=== PATIENT | male | born 1985 | race Caucasian/White ===

== ENCOUNTER 2022-01-04 08:21 | Day surgery (SDC) | payer OTHER ==
[2022-01-04 08:28] LABS: Absolute Lymphocytes (CBC) 1.3 K/uL (0.7-4.9); Hematocrit 29.6 % (39.6-49.0); Lymphocytes % 8.9 % (15.3-44.8); MPV 5.7 fL (7.6-11.3); RBC Red Blood Cell Count 3.71 M/uL (4.33-5.43)
[2022-01-04] MEDS ORDERED: Ringers Lactate 1,000 ML IV ONE (08:56)
[2022-01-04] MEDS ORDERED: CEFAZOLIN SODIUM 1 GM/VIAL ONE (08:56)
[2022-01-04] MEDS ORDERED: NA CHLORIDE 0.9% 50 ML ONE (08:57)
[2022-01-04] MEDS ORDERED: FENTANYL CITR 100 MCG/2 ML ONE (09:07)
[2022-01-04] MEDS ORDERED: propofoL 200 MG/20 ML VIAL IV ONE (09:07)
[2022-01-04] MEDS ORDERED: MIDAZOLAM HCL 2 MG/2 ML INJ ONE (09:07)
[2022-01-04] MEDS ORDERED: KETOROLAC 30 MG/ML INJ ONE (09:08)
[2022-01-04] MEDS ORDERED: dexAMETHasone 10 MG/ML VIAL ONE (09:08)
[2022-01-04] MEDS ORDERED: LIDOCAINE 1% MPF 30 ML VIAL ONE (09:08)
[2022-01-04] MEDS ORDERED: ONDANSETRON 4 MG/2 ML VIAL ONE (09:08)
[2022-01-04] MEDS ORDERED: NS 0.9% VIAL 0 ML ONE (09:09)
[2022-01-04] MEDS ORDERED: HEPARIN 5000 UNIT/ML 1 ML VIAL ONE (09:10)
[2022-01-04] MEDS ORDERED: LIDOCAINE 1% 20 ML MDV ONE (09:10)
[2022-01-04] MEDS ORDERED: NS 0.9% VIAL 10 ML ONE (09:11)
[2022-01-04] MEDS ORDERED: LIDOCAINE 1% 20 ML MDV IJ ONE (10:12)
[2022-01-04] MEDS ORDERED: Mastisol Adhesive Liq ONE (10:35)
--- NOTE | 2022-01-04 10:45 | P.OP ---
Date of Service: 01/04/22 Preop diagnosis: Rectal cancer Postop diagnosis: Same Procedure performed: Right IJ Port-A-Cath placement, interpretation of intraoper ative fluoroscopy Surgeon: Lawson Leal MD Urologic Nurse: Jersey CRESPO Estimated blood loss: Minimal Specimen: None Findings: Normal anatomy Anesthesia: General Complications: None Drains: None Fluids and blood products: None applicable Disposition: Recovery room Operative note: Patient brought to the OR and placed in supine position. Patient prepped and draped in usual sterile fashion. Marcaine 0.5% infiltrated locally for postop pain control. 18-gauge needle used to access the right IJ vein. Guidewire passed and position confirmed with fluoroscopy. 3 cm counterincision made on the right anterior chest. A pocket created. A tunneling device used to pass the catheter from the neck wound to the chest. Seldinger technique used to place the tip of the catheter into the SVC via fluoroscopy guidance. The catheter attached to the Port-A-Cath device. Port-A-Cath device attached to the subcutaneous tissue with 3-0 Vicryl. 3-0 chromic used to approximate subcutaneous tissue in close skin. Port-A-Cath flushed with heparin and packed with heparin with good blood flow. Sterile dressing applied. Patient awakened and taken to recovery room in good general condition. CC: Dr. Sin's office
[2022-01-04] MEDS ORDERED: HYDROCODONE/APAP 7.5/325 MG TAB PO PRN (10:47)
[2022-01-04 11:32] VITALS: BP 110/72; TEMP 96.9; O2SAT 97
--- NOTE | 2022-01-04 11:53 | RAD REPORT ---
EXAM DESCRIPTION: RAD - Fluoroscopy <1 Hour - 01/04/2022 11:47 am FINDINGS: There were 6 portable C-arm images submitted from fluoroscopic assisted placement of a rig ht-sided Port-A-Cath. Fluoro time was 0.2 minutes with a 5.59 mGy cumulative dose.
--- NOTE | 2022-01-04 11:54 | RAD REPORT ---
EXAM DESCRIPTION: RAD - Chest Single View - 01/04/2022 11:46 am CLINICAL HISTORY: Status post Port-A-Cath placement COMPARISON: August 2016 TECHNIQUE: AP portable chest image was obtained 01/04/2022 11:46 am . FINDINGS: Right-sided Port-A-Cath has been placed. Tip is in the proximal SVC. There is no pneumotho rax. Small rounded masses are scattered in the lung parenchyma. Low lung volumes accentuate all chest find ings. No pleural fluid collection. Delete select IMPRESSION: Right-sided Port-A-Cath placement with the tip in the proximal SVC. No pneumothorax.
== END 2022-01-04 12:17 | disposition home or self-care (01) ==
LOC: OR 08:21
PROVIDERS: ATTEND Surgery
PROC: 0JH60WZ Insertion of Totally Implantable Vascular Access Device into Chest Subcutaneous Tissue and Fascia, Open Approach (ICD-10-PCS; principal; 2022-01-04 09:30)
DX: C20 Malignant neoplasm of rectum (principal); Z20.822 Contact with and (suspected) exposure to COVID-19
CPT/HCPCS: 85025; 36415; 71045; 76000; 36561; U0003; J2704; J1644 ×3; J2250; J3010; J1100; J7120; J2405; J0690; C1788

== ENCOUNTER 2022-08-26 11:51 | Inpatient (IN) | payer OTHER ==
--- OUTSIDE RECORDS SUMMARY | 2022-08-26 11:58 | XMS REPORT | Continuity of Care Document ---
:1985 Author Organization [facility] t Address 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 Clinicall y the patient is stable and does not require urgent MRI of his brain given his advanced colorecta l cancer. I discussed that if he should have any new symptoms such as persisten t headaches or seizures he should contact our service and then have the MRI scheduled . Colorectal Colorectal Disease Active 2021-09 Overview : [place] cancer cancer 0-11 [facility] 00:00: g of this 00 note might be different from the original. 6 months chemo Allergies, Adverse Reactions, Alerts Allergy Allergy Status Severity Reaction(s) Onset Inactive Treating Comm ents Source Name Type Date Date Clinician Sulfa Allergy Active 2021-09 [facility]iot [facility] ics substanc 00:00: e 00 Social History Social Habit Start Date Stop Date Quantity Comments Source History of tobacco Passive smoker [facility] use Exposure to 2022-06-12 2022-06-22 Not sure [facility] SARS-CoV-2 (event) 00:00:00 06:08:00 Alcohol intake 2022-06-22 2022-06-22 Lifetime [facility] 00:00:00 00:00:00 non-drinker (finding) Tobacco Comment 2022-06-22 2022-06-22 Smoking History [facility] 00:00:00 00:00:00 Packs/day: 1 PPD. Recorded: 0 Sex Assigned At [birth year] [facility] 00:00:00 00:00:00 Smoking Status Start Date Stop Date Source Tobacco smoking consumption unknown [facility] Ex-smoker 2022-06-22 00:00:00 2022-06-22 00:00:00 [facility] Medications Ordered Filled Start Stop Current Ordering Indication Dosage Frequency Signature Comments Components Source Medication Medication Date Date Medication? Clinician (SIG) Name Name No known 2021-09 No No known [facility] medications medication He alth 16:17: s 06 Procedures Procedure Date / Time Performed Performing Clinician Sour e MRI BRAIN W WO CONTRAST 2021-07-15 15:24:25 Frank, Sigmund [facility] BRAIN W WO CONTRAST 2021-07-15 15:24:25 Frank, Sigmund [facility] Encounters Start End Encounter Admission Attending Care Care Encounter Source Date/Time Date/Time Type Type Clinicians Facility Department ID 2022-06-22 Outpatient [facility] [id number] [place] 14:54:25 [id number] [facility] 2022-06-21 Outpatient [facility] [id number] [place] 15:36:47 [id number] [facility] 2022-01-14 [facility]patient [id number] 10:00:[address] [place] [address] 2021-12-24 Outpatient SYSTEM, [facility] [id number] 11:45:50 PROVIDER Bashir moore 2022-06-22 2022-06-22 Telemedici Frank, UTP 6400 [id number] [place] 15:00:00 16:05:[address] [id number] Health [id number] 2021-07-15 2021-07-15 [facility] OP Frank, EXT MSRDP [id number] [place] 00:00:00 00:00:00 Sigmund LOCATION [id number] H ealth [id number] 2021-07-15 2021-07-15 [facility]T [facility] OP Frank, EXT MSRDP [id number] [place] 00:00:00 00:00:00 Sigmund LOCATION [id number] H ealth [id number] Results This patient has no known results.
[2022-08-26] MEDS ORDERED: MORPHINE 4 MG/ML SYR ONE ×2 (12:48→16:21)
[2022-08-26] MEDS ORDERED: NA CHLORIDE 0.9% 1,000 ML ONE (12:48)
[2022-08-26] MEDS ORDERED: ONDANSETRON 4 MG/2 ML VIAL ONE (12:48)
[2022-08-26 13:19] LABS: Absolute Lymphocytes (CBC) 0.6 K/uL (0.7-4.9); Hematocrit 35.8 % (39.6-49.0); Lymphocytes % 57.8 % (15.3-44.8); MCV 88.5 fL (80-100); MPV 6.4 fL (7.6-11.3); RBC Red Blood Cell Count 4.04 M/uL (4.33-5.43)
[2022-08-26 13:20] LABS: Protime INR 1.74
[2022-08-26 13:38] LABS: ALT/SGPT 58 U/L (16-61); AST/SGOT 85 U/L (15-37); Albumin 2.3 g/dL (3.4-5.0); Alkaline Phosphatase 643 U/L (45-117); BUN Blood Urea Nitrogen 16 mg/dL (7-18); Bicarbonate 27 mmol/L (21-32); Bilirubin Direct 0.8 mg/dL (0-0.2); Bilirubin Total 1.4 mg/dL (0.2-1.0); Glomerular Filtration Rate 131 ml/min (=/>90); Glucose Level 117 mg/dL (74-106); NT PRO-BNP 55 pg/mL (<125); Potassium 3.8 mmol/L (3.5-5.1); Protein, Total 6.9 g/dL (6.4-8.2); Sodium Level 134 mmol/L (136-145)
[2022-08-26 13:41] LABS: Troponin High Sensitivity < 3.0 pg/mL (<58.9)
--- NOTE | 2022-08-26 14:45 | RAD REPORT ---
EXAM DESCRIPTION: CTChest Abdomen Pelvis W Cont - 08/26/2022 2:30 pm CLINICAL HISTORY: upper back pain/abdominal pain COMPARISON: Chest Abdomen Pelvis W Cont dated 06/22/2022; Carotid Artery Bilateral dated 08/26/2022 TECHNIQUE: CT of the chest, abdomen, and pelvis was performed. All CT scans are performed using dose optimization technique as appropriate and may include automated exposure control or mA/KV adjustment according to patient size. FINDINGS: Thorax: Chest Wall: Right upper chest wall Port-A-Cath. Lungs: Re- demonstrated numerous bilateral pulmonary nodules. The largest in the right middle lobe me asures 1.9 cm, unchanged. A right lower lobe nodule on image 23, series 4 to measures 14 mm, previous ly 11 mm. Pleura: No effusions or pneumothorax. Devi/Mediastinum: No lymphadenopathy. Circumferential thickening of the distal esophagus. Aorta/Pulmonary Arteries: Unremarkable Heart: Normal size. Abdomen/Pelvis: Liver: Innumerable metastatic lesions in the liver. These are grossly similar. Biliary: Cholelithiasis. There stones at the gallbladder neck. This is similar. Stomach: No significant focal abnormality. Duodenum: No significant focal abnormality. Pancreas: No significant abnormality. Spleen: Splenomegaly Adrenal: No suspicious lesions. Kidney/ureter: No hydronephrosis. No renal calculi. Retroperitoneum: No retroperitoneal adenopathy. Vascular: No aneurysm. Bowel: Rectal wall thickening enhancement is similar.. Peritoneum: Small volume of ascites. Bladder: Grossly unremarkable. Reproductive: Multiple thoracic compression fractures identified. This includes the fifth, sixth, eig hth, and tenth vertebrae. The compression fracture at T10 is new from prior. Bones: No acute fracture. Posterior laminectomy in the lower thoracic and lumbar spine. Other: n/a IMPRESSION: 1. New T10 compression fracture with less than 20% loss of height. No bony retropulsion. 2. Pulmonary and hepatic metastatic disease is not significantly changed. 3. Cholelithiasis. Stones present near the gallbladder neck. Correlate with LFTs to exclude acute cho lecystitis. 4. Small volume of new but nonspecific pelvic free fluid.
[2022-08-26 14:56] LABS: Platelet Estimate ADEQ
[2022-08-26 14:57] LABS: Blood Morphology Comment NOT SEEN (NOT SEEN)
--- NOTE | 2022-08-26 15:05 | RAD REPORT ---
EXAM DESCRIPTION: - CP - 08/26/2022 2:57 pm CLINICAL HISTORY: PAIN COMPARISON: No comparisons TECHNIQUE: Real-time sonographic evaluation of both carotid systems was performed. Doppler interroga tion was performed with waveform tracing bilaterally. FINDINGS: Normal high resistance waveforms are noted in both external carotid arteries. The common c arotid arteries and internal carotid arteries show normal low resistance waveforms. No significant plaque formation is seen. Peak systolic and end diastolic velocity values and the ICA/ CCA ratios are in the non-hemodynamically significant range. Antegrade flow seen in both vertebral arteries. IMPRESSION: No significant atherosclerotic changes noted. No evidence of a hemodynamically significant stenosis.
--- NOTE | 2022-08-26 15:12 | RAD REPORT ---
EXAM DESCRIPTION: RAD - Chest Single View - 08/26/2022 3:01 pm CLINICAL HISTORY: left upper back pain COMPARISON: Chest Pa And Lat (2 Views) dated 03/25/2022; Chest Single View dated 01/04/2022; Chest Sin gle View dated 09/07/2016; ABDOMEN ACUTE SERIES dated 01/31/2008; Chest Abdomen Pelvis W Cont dated FINDINGS: Lines: Right IJ approach Port-A-Cath with tip overlying the proximal SVC. Lungs: Bilateral pulmonary nodules. Pleural: No significant pleural effusions or pneumothorax. Cardiac: The heart size is within normal limits. Mediastinum: Within normal limits. Bones: No acute fractures. Other: None IMPRESSION: No acute cardiopulmonary disease. Pulmonary nodules consistent with known metastatic dis ease.
--- NOTE | 2022-08-26 17:10 | RAD REPORT ---
EXAM DESCRIPTION: US - Abdomen Exam Limited - 08/26/2022 5:02 pm CLINICAL HISTORY: upper abdomen pain COMPARISON: Abdomen W Contrast dated 04/21/2022 FINDINGS: The gallbladder demonstrates shadowing gallstones. No pericholecystic fluid or gallbladder wall thickening. The common bile duct is normal measuring 4 mm. The liver demonstrates multiple liver lesions. No intrahepatic biliary ductal dilatation IMPRESSION: Cholelithiasis but no sonographic evidence of acute cholecystitis.
--- NOTE | 2022-08-26 17:15 | RAD REPORT ---
EXAM DESCRIPTION: US - Extremity Nonvascular Limited - 08/26/2022 5:02 pm CLINICAL HISTORY: PAIN COMPARISON: Fluoroscopy <1 Hour dated 01/04/2022; Chest Single View dated 08/26/2022 FINDINGS: Limited ultrasound to assess for clot in the bilateral internal jugular veins. 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 No thrombus is identified. The patient has a right IJ approach Port-A-Ca th. IMPRESSION: Patent bilateral internal jugular veins without evidence of thrombus. Right IJ approach Port-A-Cath noted.
--- NOTE | 2022-08-26 18:51 | RAD REPORT ---
EXAM DESCRIPTION: MRI - Cholangiogram - 08/26/2022 6:33 pm CLINICAL HISTORY: abd pain COMPARISON: Abdomen Exam Limited dated 08/26/2022; Chest Abdomen Pelvis W Cont dated 08/26/2022 FINDINGS: Three-dimensional MRCP was performed using maximum intensity projection reconstruction on the same work station. No intrahepatic biliary tree dilatation is seen. The common bile duct is normal caliber without evide nce of retained stone, stricture or mass. The pancreatic duct is not pathologically dilated. Small calcified stones in the region of the cystic duct not readily visible on MRI. Pericholecystic f luid is noted. No common bile duct stones identified. Multiple liver lesions consistent with known metastatic disease again identified. Splenomegaly. IMPRESSION: Small calcified stones in the region of the gallbladder neck and cystic duct on the same -day CT are difficult to appreciate by MRI. Mild pericholecystic fluid present but the gallbladder is not distended. Suspicion for acute cholecystitis is low. No biliary ductal dilatation or evidence of choledocholithiasis identified.
[2022-08-26] MEDS ORDERED: HYDROMORPHONE HCL 1 MG/ML INJ ONE ×2 (19:36→23:33)
--- NOTE | 2022-08-26 19:51 | P.HP ---
Certification for Inpatient Patient admitted to: Inpatient With expected LOS: >2 Midnights Patient will require the following post-hospital care: None Practitioner: I am a practitioner with admitting privileges, knowledge of patient current condition, hospital course, and medical plan of care. Services: Services provided to patient in accordance with Admission requirements found in Title 42 Section 412.3 of the Code of Federal Regulations Patient History Date of Service: 08/26/22 Primary Care Provider: Kristopher Reason for admission: Cholelithiasis History of Present Illness: Patient is a 36 year old male with metastatic stage 4 colorectal cancer currently undergoing chemotherapy who presented to the ED with complaints of ne ck pain and abdominal pain. His labs were noted to be significant for WBC 1.1, hgb 12.1, tbili 1.4, AST 85, alk phos 643. CT abdomen pelvis showed "New T10 compression fracture with less than 20% loss of height. No bony retropulsion. Pulmonary and hepatic metastatic disease is not significantly changed. Cholelithiasis. Stones present near the gallbladder neck. Small volume of new but nonspecific pelvic free fluid." Follow up abdominal US showed "Cholelithiasis but no sonographic evidence of acute cholecystitis." MRCP showed "Small calcified stones in the region of the gallbladder neck and cystic duct on the sameday CT are difficult to appreciate by MRI. Mild pericholecystic fluid present but the gallbladder is not distended. Suspicion for acute cholecystitis is low. No biliary ductal dilatation or evidence of choledocholithiasis identified." His pain continued despite several rounds of IV narcotics. Dr. Leal was contacted and has agreed to consult. Patient will be admitted for further management. Allergies Sulfa (Sulfonamide Antibiotics) Allergy (Verified 01/04/22 08:03) Hives/Rash Home medications list reviewed: Yes Home Medications: Dm/PE/Acetaminophen/Doxylamine [Vicks Nyquil Severe Cold-Flu] 354 ml PO BEDTIME PRN PRN 01/04/22 Ibuprofen [Motrin] 600 mg PO TIDP PRN 01/04/22 - Past Medical/Surgical History Diabetic: No -: Colorectal cancer, stage 4, with metasteses to liver and lungs -: Craniotomy Psychosocial/ Personal History: Patient lives at home with his family. - Family History Family History: Reviewed- Non-Contributory - Social History Smoking Status: Never smoker Alcohol use: No CD- Drugs: Yes Caffeine use: Yes Place of Residence: Home Review of Systems Gastrointestinal: Abdominal Pain Musculoskeletal: Neck Pain Physical Examination - Vital Signs Blood Pressure: 135/87 Pulse: 98 Respirations: 20 Pulse Ox (%): 100 (room air) - Physical Exam General: Alert, In no apparent distress HEENT: Atraumatic, PERRLA, EOMI, Sclerae nonicteric Neck: Supple, 2+ carotid pulse no bruit, No LAD, Without JVD or thyroid abnormality Respiratory: Clear to auscultation bilaterally, Normal air movement Cardiovascular: Regular rate/rhythm, Normal S1 S2 Gastrointestinal: Normal bowel sounds, Non-distended, Tenderness Musculoskeletal: No tenderness Integumentary: No rashes Neurological: Normal speech, Normal strength at 5/5 x4 extr, Normal tone, Normal affect - Studies Laboratory Data (last 24 hrs) 08/26/22 13:10: PT 19.1 H, INR 1.74 08/26/22 13:10: WBC 1.10 L*, Hgb 12.1 L, Hct 35.8 L, Plt Count 305 08/26/22 13:10: Sodium 134 L, Potassium 3.8, BUN 16, Creatinine 0.54 L, Glucose 117 H, Magnesium 2.0, Total Bilirubin 1.4 H, AST 85 H, ALT 58, Alkaline Phosphatase 643 H Assessment and Plan - Problems (Diagnosis) (1) Cholelithiasis Current Visit: Yes Status: Acute Qualifiers: Cholelithiasis location: gallbladder Cholecystitis presence: without cholecystitis Biliary obstruction: without biliary obstruction Qualified Code(s): K80.20 - Calculus of gallbladder without cholecystitis without obstruction (2) Colorectal cancer Current Visit: Yes Status: Chronic (3) Elevated LFTs Current Visit: Yes Status: Acute (4) Neutropenia Current Visit: Yes Status: Acute Qualifiers: Neutropenia type: secondary to cancer chemotherapy Qualified Code(s): D70.1 - Agranulocytosis secondary to cancer chemotherapy; T45.1X5A - Adverse effect of antineoplastic and immunosuppressive drugs, initial encounter - Plan Patient is admitted for further management of cholelithiasis, intractable pain. Dr. Leal to see patient in morning. IV fluids, dilaudid PRN, zosyn, NPO at midnight. Neutropenia secondary to chemotherapy. Will monitor CBC closely. Trend LFTs. Monitor and replete electrolytes per protocol. Reconcile and continue home medications. SCDs for VTE prophylaxis. Full code. Discharge Plan: Home Plan to discharge in: 48 Hours - Advance Directives Does patient have a Living Will: No Does patient have a Durable POA for Healthcare: No - Code Status/Comfort Care Code Status Assessed: Yes Code Status: Full Code Physician Review: Patient Assessed, Agree with Above Assessment and Plan Critical Care: No Time Spent Managing Pts Care (In Minutes): 50
--- NOTE | 2022-08-26 20:00 | EDPHYS ---
Physician Documentation [facility] Name: Ever Acosta Age: 36 yrs Sex: Male : 1985 Arrival Date: 08/26/2022 Time: 11:52 Bed 18 Private MD: Donte Summers ED Physician Shante Frias HPI: 08/26 12:45 This 36 yrs old Male presents to ER via Ambulatory with complaints of Abdominal Pain, cp Neck Pain, <24hrs Old, Shoulder Pain. 12:45 The patient presents with abdominal pain in the upper abdomen. Onset: The cp symptoms/episode began/occurred today, and became worse today. 12:45 Associated signs and symptoms: Pertinent positives: nausea and vomiting, left upper cp back and left side neck pain. 12:45 The symptoms are described as constant. Severity of pain: in the emergency department cp the pain is unchanged despite home interventions. Historical: - Allergies: 12:14 Sulfa (Sulfonamide Antibiotics); ap3 - PMHx: 12:14 colorectal cancer; brain tumor; ap3 - PSHx: 12:14 Craniotomy; ap3 - Immunization history:: Client reports having NOT received the Covid vaccine. Flu vaccine is not up to date. - Social history:: Smoking status: Patient denies any tobacco usage or history of. Patient uses street drugs, marijuana. ROS: 12:50 Constitutional: Negative for body aches, chills, fever. cp 12:50 Eyes: Negative for injury, pain, redness, and discharge. cp 12:50 ENT: Negative for drainage from ear(s), ear pain, sore throat, difficulty swallowing, difficulty handling secretions. 12:50 Neck: Positive for pain at rest, of the left lateral neck. 12:50 Cardiovascular: Negative for chest pain, edema, palpitations. 12:50 Respiratory: Negative for cough, shortness of breath, wheezing. 12:50 Abdomen/GI: Positive for abdominal pain, nausea, vomiting, of the left upper quadrant, Negative for diarrhea, constipation, hematemesis. 12:50 Back: Positive for pain at rest, of the left trapezius and left scapular area. 12:50 : Negative for urinary symptoms, testicular pain 12:50 Neuro: Negative for altered mental status, headache, numbness, syncope, weakness. 12:50 All other systems are negative. Exam: 12:55 Constitutional: The patient appears in no acute distress, alert, awake, cp non-diaphoretic, non-toxic, well developed, well nourished. 12:55 Head/Face: Normocephalic, atraumatic. cp 12:55 Eyes: Periorbital structures: appear normal, Conjunctiva: normal, no exudate, no injection, Sclera: no appreciated abnormality, Lids and lashes: appear normal, bilaterally. 12:55 ENT: External ear(s): are unremarkable, Nose: is normal, Mouth: Lips: moist, Oral mucosa: pink and intact, moist, Posterior pharynx: Airway: no evidence of obstruction, patent. 12:55 Neck: ROM/movement: pain, that is mild, limited range of motion, is not appreciated, nuchal rigidity, is not appreciated. 12:55 Cardiovascular: Rate: tachycardic, Rhythm: regular, Edema: is not appreciated, JVD: is not appreciated. 12:55 Respiratory: the patient does not display signs of respiratory distress, Respirations: normal, no use of accessory muscles, no retractions, labored breathing, is not present, Breath sounds: are clear throughout, no decreased breath sounds, no stridor, no wheezing. 12:55 Abdomen/GI: Inspection: abdomen appears normal, Bowel sounds: active, all quadrants, Palpation: soft, in all quadrants, moderate abdominal tenderness, in the right upper quadrant and left upper quadrant, rebound tenderness, is not appreciated, voluntary guarding, is elicited in the right upper quadrant and left upper quadrant. 12:55 Back: pain, that is mild, of the left trapezius and left scapular area, ROM is normal. 12:55 Skin: cellulitis, is not appreciated, no rash present. 12:55 Neuro: Orientation: to person, place \T\ time. Mentation: is normal. Vital Signs: 12:12 BP 121 / 86; Pulse 119; Resp 18; Pulse Ox 96% on R/A; Weight 65.77 kg; Height 5 ft. 10 ap3 in. (177.80 cm); Pain 2/10; 13:03 BP 108 / 81; Pulse 82; Resp 18; Pulse Ox 97% on R/A; em6 14:54 BP 123 / 86; Pulse 71; Resp 18; Pulse Ox 98% on R/A; em6 15:30 BP 107 / 88; Pulse 76; Resp 14; Pulse Ox 96% on R/A; em6 17:00 BP 117 / 87; Pulse 84; Resp 16; Pulse Ox 97% on R/A; em6 18:42 BP 129 / 89; Pulse 92; Resp 18; Pulse Ox 99% on R/A; em6 19:42 BP 135 / 87; Pulse 98; Resp 20; Pulse Ox 100% on R/A; em6 21:00 BP 132 / 88; Pulse 93; Resp 20; Pulse Ox 99% on R/A; em6 22:30 BP 131 / 96; Pulse 99; Resp 20; Pulse Ox 96% on R/A; em6 12:12 Body Mass Index 20.81 (65.77 kg, 177.80 cm) ap3 MDM: 12:21 Patient medically screened. cp 13:00 Differential diagnosis: cholecystitis, Cholelithiasis, diverticulitis, gastritis, cp pancreatitis, Peptic Ulcer Disease, Perf. Duodenal Ulcer, Perf. Gastric Ulcer. 19:05 Data reviewed: vital signs, nurses notes, lab test result(s), EKG, radiologic studies, cp CT scan, MRI, plain films, ultrasound. 19:05 Test interpretation: by ED physician or midlevel provider: ECG, plain radiologic cp studies. Counseling: I had a detailed discussion with the patient and/or guardian regarding: the historical points, exam findings, and any diagnostic results supporting the discharge/admit diagnosis, lab results, radiology results, the need for further work-up and treatment in the hospital. 19:15 Physician consultation: Lawson Leal MD was called at 19:00, was contacted at 19:00, regarding consult, patient's condition, and will see patient tomorrow, would like admission per Dr. Bernie Cheung PA-C wants patient admitted for pain control, IV fluids, antibiotics. Clear liquid diet and npo after midnight. 08/26 12:37 Order name: Basic Metabolic Panel; Complete Time: 13:41 cp 08/26 14:33 Interpretation: Normal except: NA 134; GLUC 117; CRE 0.54. 08/26 12:37 Order name: CBC with Diff; Complete Time: 15:48 cp 08/26 13:40 Interpretation: Normal except: WBC 1.10; RBC 4.04; HGB 12.1; HCT 35.8; RDW 17.6; MPV cp 6.4; MARY% 19.3; LYM% 57.8; MN% 18.9; NEUT A 0.2; LYMA 0.6. 08/26 12:37 Order name: LFT's; Complete Time: 13:41 cp 08/26 17:22 Interpretation: Normal except: AST 85; ALK 643; BILIT 1.4; BILID 0.8; ALB 2.3; GLOB cp 4.6; A/G 0.5. 08/26 12:37 Order name: Magnesium; Complete Time: 13:41 cp 08/26 12:37 Order name: NT PRO-BNP; Complete Time: 13:41 cp 08/26 12:37 Order name: PT-INR; Complete Time: 13:40 cp 08/26 12:37 Order name: Troponin HS; Complete Time: 13:41 cp 08/26 13:28 Order name: Manual Differential; Complete Time: 15:48 EDMS 08/26 15:48 Interpretation: Normal except: SEGS 22; LYM 56; MONO 22. cp / 19:31 Order name: SARS RAPID; Complete Time: 20:25 cp 08/27 03:23 Order name: CBC with Automated Diff; Complete Time: 03:31 EDMS 08/27 04:01 Order name: Comprehensive Metabolic Panel; Complete Time: 04:08 EDMS 08/27 04:01 Order name: Phosphorus; Complete Time: 04:08 EDMS 08/27 04:01 Order name: Lipid Profile; Complete Time: 04:08 EDMS 08/27 04:01 Order name: Magnesium; Complete Time: 04:08 EDMS 08/26 12:37 Order name: XRAY Chest (1 view); Complete Time: 15:48 cp 08/26 12:37 Order name: EKG; Complete Time: 12:37 cp 08/26 13:02 Order name: US Carotid Artery Bilateral; Complete Time: 15:48 cp 08/26 13:42 Order name: CT Chest, Abdomen, Pelvis - W/Contrast; Complete Time: 15:48 cp 08/26 16:04 Order name: US Abdomen Limited: gallbladder; Complete Time: 17:20 cp 08/26 16:04 Order name: US Extrmty Nonvasular Limited: bilateral jugular; Complete Time: 17:20 cp 08/26 17:41 Interpretation: Report reviewed. 08/26 17:44 Order name: Cholangiogram; Complete Time: 18:58 EDMS 08/26 20:00 Order name: Diet Clear Liquid; Complete Time: 20:01 08/26 20:07 Order name: NPO; Complete Time: 20:17 EDMS 08/27 04:01 Order name: Thyroid Stimulating Hormone; Complete Time: 04:08 EDMS 08/26 12:37 Order name: Cardiac monitoring; Complete Time: 13:13 08/26 12:37 Order name: EKG - Nurse/Tech; Complete Time: 13:13 08/26 12:37 Order name: IV Saline Lock; Complete Time: 13:13 08/26 12:37 Order name: Labs collected and sent; Complete Time: 13:13 08/26 12:37 Order name: O2 Per Protocol; Complete Time: 13:13 08/26 12:37 Order name: O2 Sat Monitoring; Complete Time: 13:13 08/26 14:45 Order name: Vital Signs: please update to include temp; Complete Time: 14:54 08/26 17:42 Order name: NPO; Complete Time: 17:43 cp Administered Medications: 13:05 Drug: morphine 4 mg Route: IVP; Infused Over: 4 mins; Site: right antecubital; em6 13:54 Follow up: Response: No adverse reaction; RASS: Alert and Calm (0) em6 13:05 Drug: Zofran (Ondansetron) 4 mg Route: IVP; Site: right antecubital; em6 13:54 Follow up: Response: No adverse reaction em6 13:05 Drug: NS 0.9% 1000 ml Route: IV; Rate: 1000 ml/hr; Site: right antecubital; em6 15:25 Follow up: Response: No adverse reaction; IV Status: Completed infusion; IV Intake: em6 1000ml 16:26 Drug: morphine 4 mg Route: IVP; Infused Over: 4 mins; Site: right antecubital; em6 17:00 Follow up: Response: No adverse reaction; RASS: Alert and Calm (0) em6 19:43 Drug: Dilaudid (HYDROmorphone) 1 mg Route: IVP; Site: right antecubital; em6 20:20 Follow up: Response: No adverse reaction em6 20:11 Drug: Zosyn (piperacillin-tazobactam) 3.375 grams Route: IVPB; Infused Over: 60 mins; em6 Site: right antecubital; 21:29 Follow up: Response: No adverse reaction; IV Status: Completed infusion; IV Intake: em6 100ml Disposition Summary: 08/26/22 19:59 Hospitalization Ordered Hospitalization Status: Observation cp Provider: Lio Regan cp Condition: Stable cp Problem: new cp Symptoms: have improved cp Bed/Room Type: Standard cp Location: Telemetry/MedSurg (observation)(08/27/22 12:30) eb Room Assignment: [facility](08/27/22 12:30) eb Diagnosis - Other cholelithiasis without obstruction cp - Abnormal results of liver function studies cp Forms: - Medication Reconciliation Form cp - SBAR form cp Signatures: Dispatcher [employer] EDVera Umanzor RN RN Uriel Morales PA PA cp Prokisch, Amanda RN RN ap3 Lidya Gutierrez Erika, RN RN em6 Bernie Cheung PANancy PANancy sb4 Corrections: (The following items were deleted from the chart) 20:56 19:59 Telemetry/MedSurg (observation) cp bb 20:56 19:59 cp bb 08/27 12:30 15 20:56 [facility] ER HOLD bb eb 08/27 12:30 08/26 20:56 ERHOLD- bb eb 08/28 02:11 08/26 12:45 Onset: The symptoms/episode began/occurred yesterday, and became worse cp today, cp
--- NOTE | 2022-08-26 20:00 | ER ---
Nurse's Notes [facility] Name: Ever Acosta Age: 36 yrs Sex: Male : 1985 Arrival Date: 08/26/2022 Time: 11:52 Bed 18 Private MD: Donte Summers Diagnosis: Other cholelithiasis without obstruction;Abnormal results of liver function studies Presentation: 08/26 12:12 Chief complaint: Patient states: he is having right sided neck pain, that feels similar ap3 to a blood clot he had in the past in his right IJ. It is reported the blood clot was in March of 2022. Patient has stage 4 colorectal cancer, and is currently getting chemo treatment. last treatment was yesterday 08/25/2022. Coronavirus screen: At this time, the client does not indicate any symptoms associated with coronavirus-19. Ebola Screen: No symptoms or risks identified at this time. Initial Sepsis Screen: Does the patient meet any 2 criteria? HR > 90 bpm. Does the patient have a suspected source of infection? No. Patient's initial sepsis screen is negative. Risk Assessment: Do you want to hurt yourself or someone else? Patient reports no desire to harm self or others. Onset of symptoms was August 26, 2022. 12:12 Method Of Arrival: Ambulatory ap3 12:12 Acuity: TORIBIO 3 ap3 Triage Assessment: 12:14 General: Appears uncomfortable, Behavior is calm, cooperative. Pain: Complains of pain ap3 in left mid cervical area and left trapezius. Neuro: Level of Consciousness is awake, alert, obeys commands, Oriented to person, place, time, situation. Cardiovascular: Patient's skin is warm and dry. Respiratory: Airway is patent Respiratory effort is even, unlabored. GI: Reports upper abdominal pain, on the upper left quadrant. Historical: - Allergies: 12:14 Sulfa (Sulfonamide Antibiotics); ap3 - PMHx: 12:14 colorectal cancer; brain tumor; ap3 - PSHx: 12:14 Craniotomy; ap3 - Immunization history:: Client reports having NOT received the Covid vaccine. Flu vaccine is not up to date. - Social history:: Smoking status: Patient denies any tobacco usage or history of. Patient uses street drugs, marijuana. Screenin:17 Abuse screen: Denies threats or abuse. Tuberculosis screening: No symptoms or risk ap3 factors identified. 13:05 [facility] ED Fall Risk Assessment (Adult) History of falling in the last 3 months, em6 including since admission No falls in past 3 months (0 pts) Confusion or Disorientation No (0 pts) Intoxicated or Sedated No (0 pts) Impaired Gait No (0 pts) Mobility Assist Device Used No (0 pt) Altered Elimination No (0 pt) Score/Fall Risk Level 0 - 2 = Low Risk Oriented to surroundings, Maintained a safe environment, Educated pt \T\ family on fall prevention, incl call for assistance when getting out of bed, Assessed \T\ reinforced patient's understanding of fall precautions, Provided non-skid footwear, Hourly rounding (assess needs \T\ fall precautionary measures) done, Used ambulatory aids as needed (educated on \T\ assisted with), Used gait belt as appropriate. Nutritional screening: No deficits noted. Fall Risk Total Kendall Fall Scale indicates No Risk (0-24 pts). Assessment: 13:05 General: Appears in no apparent distress. Behavior is cooperative. Pain: Complains of em6 pain in left upper quadrant and left lower quadrant and left trapezius and left mid cervical area and back of neck Pain does not radiate. Pain currently is 8 out of 10 on a pain scale. Quality of pain is described as sharp. Neuro: Level of Consciousness is awake, alert, obeys commands, Oriented to person, place, time, situation. Cardiovascular: Patient's skin is warm and dry. Rhythm is sinus rhythm. Respiratory: Airway is patent Respiratory effort is even, unlabored, Breath sounds are clear bilaterally. GI: Abdomen is non-distended, Bowel sounds present X 4 quads. Abd is soft and non tender X 4 quads. Reports diarrhea. : No signs and/or symptoms were reported regarding the genitourinary system. EENT: No signs and/or symptoms were reported regarding the EENT system. Derm: No signs and/or symptoms reported regarding the dermatologic system. Musculoskeletal: Circulation, motion, and sensation intact. Range of motion: intact in all extremities. 14:54 Reassessment: Patient appears in no apparent distress at this time. No changes from em6 previously documented assessment. Patient and/or family updated on plan of care and expected duration. Pain level reassessed. Patient is alert, oriented x 3, equal unlabored respirations, skin warm/dry/pink. 15:50 Reassessment: Patient appears in no apparent distress at this time. No changes from em6 previously documented assessment. Patient and/or family updated on plan of care and expected duration. Pain level reassessed. Patient is alert, oriented x 3, equal unlabored respirations, skin warm/dry/pink. 16:05 Reassessment: patient is stating pain the left upper and lower abdomen 8 out of 10. em6 provider notified. new order. Neuro: Level of Consciousness is awake, alert, obeys commands, Oriented to person, place, time, situation. Respiratory: Airway is patent Respiratory effort is even, unlabored. 17:05 Reassessment: Patient appears in no apparent distress at this time. No changes from em6 previously documented assessment. Patient and/or family updated on plan of care and expected duration. Pain level reassessed. Patient is alert, oriented x 3, equal unlabored respirations, skin warm/dry/pink. 17:55 Reassessment: left to MRI in stretcher with MRI staff. em6 18:37 Reassessment: Patient is alert, oriented x 3, equal unlabored respirations, skin em6 warm/dry/pink. patient is back from MRI. Neuro: Level of Consciousness is awake, alert, obeys commands, Oriented to person, place, time, situation. Respiratory: Airway is patent Respiratory effort is even, unlabored. 19:32 Reassessment: patient states pain in his left upper and lower abdomen and in his neck. em6 pain level at 9 out of 10. provider notified. new orders given. 19:32 Neuro: Level of Consciousness is awake, alert, obeys commands, Oriented to person, em6 place, time, situation. Respiratory: Airway is patent Respiratory effort is even, unlabored. 20:30 Reassessment: Patient appears in no apparent distress at this time. No changes from em6 previously documented assessment. Patient and/or family updated on plan of care and expected duration. Pain level reassessed. Patient is alert, oriented x 3, equal unlabored respirations, skin warm/dry/pink. 21:30 Reassessment: Patient appears in no apparent distress at this time. No changes from em6 previously documented assessment. Patient and/or family updated on plan of care and expected duration. Pain level reassessed. Patient is alert, oriented x 3, equal unlabored respirations, skin warm/dry/pink. 22:30 Reassessment: Patient appears in no apparent distress at this time. No changes from em6 previously documented assessment. Patient and/or family updated on plan of care and expected duration. Pain level reassessed. Patient is alert, oriented x 3, equal unlabored respirations, skin warm/dry/pink. 08/27 12:46 Reassessment: attempted to call report to second floor. nurse will call me back. kc6 12:52 Reassessment: attempted to call report to second floor. stated the nurse is feeding a kc6 patient and will call me back. Vital Signs: 08/26 12:12 BP 121 / 86; Pulse 119; Resp 18; Pulse Ox 96% on R/A; Weight 65.77 kg; Height 5 ft. 10 ap3 in. (177.80 cm); Pain 2/10; 13:03 BP 108 / 81; Pulse 82; Resp 18; Pulse Ox 97% on R/A; em6 14:54 BP 123 / 86; Pulse 71; Resp 18; Pulse Ox 98% on R/A; em6 15:30 BP 107 / 88; Pulse 76; Resp 14; Pulse Ox 96% on R/A; em6 17:00 BP 117 / 87; Pulse 84; Resp 16; Pulse Ox 97% on R/A; em6 18:42 BP 129 / 89; Pulse 92; Resp 18; Pulse Ox 99% on R/A; em6 19:42 BP 135 / 87; Pulse 98; Resp 20; Pulse Ox 100% on R/A; em6 21:00 BP 132 / 88; Pulse 93; Resp 20; Pulse Ox 99% on R/A; em6 22:30 BP 131 / 96; Pulse 99; Resp 20; Pulse Ox 96% on R/A; em6 12:12 Body Mass Index 20.81 (65.77 kg, 177.80 cm) ap3 ED Course: 11:52 Patient arrived in ED. as 11:52 Donte Summers MD is Private Physician. as 11:56 Uriel Cm PA is PHCP. cp 11:57 Shante Frias MD is Attending Physician. cp 12:14 Triage completed. ap3 12:17 Arm band placed on right wrist. ap3 12:43 Violette Thapa, RN is Primary Nurse. em6 13:00 Missed attempt(s): 20 gauge in right antecubital area. em6 13:02 Inserted saline lock: 20 gauge in right antecubital area, using aseptic technique. em6 Blood collected. 13:05 Placed in gown. Bed in low position. Call light in reach. Side rails up X 1. Cardiac em6 monitor on. Pulse ox on. NIBP on. Warm blanket given. 14:32 CT Chest, Abdomen, Pelvis - W/Contrast In Process Unspecified. EDMS 14:58 US Carotid Artery Bilateral In Process Unspecified. EDMS 15:02 XRAY Chest (1 view) In Process Unspecified. EDMS 17:04 US Abdomen Limited: gallbladder In Process Unspecified. EDMS 17:04 US Extrmty Nonvasular Limited: bilateral jugular In Process Unspecified. EDMS 18:16 Cholangiogram In Process Unspecified. EDMS 19:43 SARS RAPID Sent. em6 19:49 SARS RAPID Sent. em6 19:58 Lio Regan is Hospitalizing Provider. 12/ 12:43 No provider procedures requiring assistance completed. Patient admitted, IV remains in kc6 place. Administered Medications: 08/26 13:05 Drug: morphine 4 mg Route: IVP; Infused Over: 4 mins; Site: right antecubital; em6 13:54 Follow up: Response: No adverse reaction; RASS: Alert and Calm (0) em6 13:05 Drug: Zofran (Ondansetron) 4 mg Route: IVP; Site: right antecubital; em6 13:54 Follow up: Response: No adverse reaction em6 13:05 Drug: NS 0.9% 1000 ml Route: IV; Rate: 1000 ml/hr; Site: right antecubital; em6 15:25 Follow up: Response: No adverse reaction; IV Status: Completed infusion; IV Intake: em6 1000ml 16:26 Drug: morphine 4 mg Route: IVP; Infused Over: 4 mins; Site: right antecubital; em6 17:00 Follow up: Response: No adverse reaction; RASS: Alert and Calm (0) em6 19:43 Drug: Dilaudid (HYDROmorphone) 1 mg Route: IVP; Site: right antecubital; em6 20:20 Follow up: Response: No adverse reaction em6 20:11 Drug: Zosyn (piperacillin-tazobactam) 3.375 grams Route: IVPB; Infused Over: 60 mins; em6 Site: right antecubital; 21:29 Follow up: Response: No adverse reaction; IV Status: Completed infusion; IV Intake: em6 100ml Medication: 08/27 12:43 VIS not applicable for this client. kc6 Intake: 08/26 15:25 IV: 1000ml; Total: 1000ml. em6 21:29 IV: 100ml; Total: 1100ml. em6 Outcome: 19:59 Decision to Hospitalize by Provider. cp 08/27 12:43 Condition: stable kc6 Instructed on the need for admit. 13:26 Admitted to Med/surg accompanied by tech, via wheelchair, room 232, with chart, Report kc6 called to MIKE Sanchez 13:26 Patient left the ED. kc6 Signatures: Dispatcher [employer] EDMS Isela Thapa Corey, PA PA cp June Robbins RN RN ap3 Mirta Burks RN RN kc6 Violette Thapa RN RN em6 Corrections: (The following items were deleted from the chart) 08/26 16:28 15:50 Reassessment: Patient appears in no apparent distress at this time. No changes em6 from previously documented assessment. Patient and/or family updated on plan of care and expected duration. Pain level reassessed. Patient is alert, oriented x 3, equal unlabored respirations, skin warm/dry/pink. em6 16:28 16:20 Reassessment: patient is stating pain the left upper and lower abdomen 8 out of em6 10. provider notified. new order em6 :28 16:20 Neuro: Level of Consciousness is awake, alert, obeys commands, Oriented to em6 person, place, time, situation, em6 16:28 16:20 Respiratory: Airway is patent Respiratory effort is even, unlabored, em6 em6 21:29 21:20 Response: No adverse reaction; IV Intake: 100ml em6 em6
[2022-08-26] MEDS ORDERED: HYDROMORPHONE HCL 1 MG/ML INJ IV PRN (20:03)
[2022-08-26 20:04] LABS: SARS-CoV-2 Antigen Rapid Res Negative (Negative)
[2022-08-26] MEDS ORDERED: NA CHLORIDE 0.9% 100 ML IV ONE (20:07)
[2022-08-26] MEDS ORDERED: PIPERACIL/TAZO 3.375 GM VIAL IV ONE (20:07)
[2022-08-26] MEDS: Ringers Lactate 1,000 ML IV SCH (22:56)
[2022-08-26 23:19] VITALS: BMI 20.7
[2022-08-26] MEDS ORDERED: Ringers Lactate 1,000 ML IV ONE (23:33)
[2022-08-26] MEDS: HYDROMORPHONE HCL 1 MG/ML INJ IV PRN (23:39)
[2022-08-27] MEDS: PIPER TAZO 3.375 GM in NA CHLORIDE 0.9% 100 ML IV SCH ×3 (01:00→17:11)
[2022-08-27 03:21] LABS: Absolute Lymphocytes (CBC) 0.7 K/uL (0.7-4.9); Hematocrit 34.9 % (39.6-49.0); Lymphocytes % 51.3 % (15.3-44.8); MCV 88.9 fL (80-100); MPV 6.3 fL (7.6-11.3); RBC Red Blood Cell Count 3.93 M/uL (4.33-5.43)
[2022-08-27 03:53] LABS: Bilirubin Total 1.3 mg/dL (0.2-1.0); Phosphorus 3.1 mg/dL (2.5-4.9); Potassium 3.7 mmol/L (3.5-5.1); Protein, Total 6.2 g/dL (6.4-8.2); Thyroid Stimulating Hormone 0.402 uIU/mL (0.358-3.740)
[2022-08-27] MEDS ORDERED: PIPER TAZO 3.375 GM in NA CHLORIDE 0.9% 100 ML IV SCH (04:00)
[2022-08-27] MEDS ORDERED: MAGNES/ALUMIN/SIMET 30ML UCUP PO PRN (07:24)
[2022-08-27] MEDS ORDERED: DIPHENHYDRAMINE 12.5MG/5ML LIQ PO PRN (07:25)
[2022-08-27] MEDS ORDERED: LIDOCAINE VISCOUS 2% SOLN 15 ML UDC PO PRN (07:25)
[2022-08-27] MEDS ORDERED: MAGNES/ALUMIN/SIMET 30ML UCUP ONE (07:54)
[2022-08-27] MEDS ORDERED: DIPHENHYDRAMINE 12.5MG/5ML LIQ ONE (07:56)
[2022-08-27] MEDS ORDERED: PIPERACIL/TAZO 3.375 GM VIAL IV ONE (07:57)
[2022-08-27] MEDS ORDERED: LIDOCAINE VISCOUS 2% SOLN 15 ML UDC ONE (07:57)
[2022-08-27] MEDS ORDERED: NA CHLORIDE 0.9% 100 ML IV ONE (07:57)
[2022-08-27] MEDS ORDERED: HYDROMORPHONE HCL 1 MG/ML INJ ONE (07:58)
[2022-08-27] MEDS ORDERED: INFLUENZA VACCINE (for 6+ mo) 0.5 ML DOSE IMVAC ONE ×2 (08:00→15:00)
[2022-08-27] MEDS: HYDROMORPHONE HCL 1 MG/ML INJ IV PRN ×3 (08:47→19:52)
[2022-08-27] MEDS: Ringers Lactate 1,000 ML IV SCH (08:56)
--- NOTE | 2022-08-27 12:05 | P.CNS ---
Date of Consult: 08/27/22 Reason for consult: Abdominal pain History of present illness: Patient is a 36-year-old gentleman who has stage IV rectal cancer and had chemotherapy earlier this week. He presents to the emergency room with acute onset of left posterior neck shoulder pain as well as diffuse abdominal pain, mostly on the left side. Patient occasionally has nausea and vomiting especially after chemotherapy. Patient has symptoms of reflux. Patient had an extensive work-up done in the ER. CAT scan showed T10 compression fracture. It also showed gallstones in the neck of the gallbladder and possibly the cystic duct but no change from an earlier CAT scan done several months ago. Patient has innumerable masses in his liver. MRCP did not vis ualize the gallstones. But, common bile duct was without mass or stones. Ultrasound did not show any evidence of acute cholecystitis. There was no pericholecystic fluid or wall thickening. Of note on the laboratory data, his white count is little over 1000. Review of systems: Patient denies sore throat, runny nose, headaches, dizziness, chest pain, fever or chills. Otherwise unremarkable Past medical history: Benign brain tumors, stage IV rectal cancer Past surgical history: Craniotomy, Port-A-Cath placement Allergies: Sulfa Social history: Patient does not smoke or drink alcohol Family history: Noncontributory Vital signs: Stable, afebrile Physical exam: Awake alert oriented x3 Head and neck exam: No neck masses, no JVD, throat clear neck supple. Chest: Clear Heart: S1-S2 Abdomen: Soft, nondistended, positive bowel sounds minimal tenderness diffusely without any evidence of peritonitis Extremity: Neurovascular intact, nontender Neuro: Nonfocal Diagnostic data: Laboratory data showed neutropenia as well as elevated liver function test. Radiographic findings per HPI. Assessment: 36-year-old gentleman with metastatic rectal cancer, T10 compression fracture, neutropenia and cholelithiasis with nonspecific pain in his left side and abdomen. Plan/recommendation: Patient is not a candidate for surgical intervention. Discussed the case with Dr. Avila, our radiologist, and he feels that based on the radiographic studies done there is no evidence of acute cholecystitis. Patient does need pain control which will be provided by the hospitalist. GI cocktail can be utilized if biliary colic is suspected. B and O suppositories can be used for his rectal spasms that he is having. Should the gallbladder become inflamed or infected, cholecystostomy tube could be considered. But, at this time patient does not require any intervention. Medical management should suffice. Plan of care discussed in detail with the patient, family as well as Dr. Regan. CC:
--- NOTE | 2022-08-27 12:53 | EKG ---
Test Date: 2022-08-26 Test Time: 12:52:52 Control Board Operator: MEASUREMENT RESULTS: Intervals: Rate: 88 RI: 132 QRSD: 80 QT: 334 QTc: 404 [place] [address]: P: 57 RI: 132 QRS: 18 T: 33 INTERPRETIVE STATEMENTS: Normal sinus rhythm Normal ECG Compared to ECG 07/13/2022 20:13:13 No significant changes Electronically Signed On 08-27-22 12:51:55 [employer]IVE PRODUCT ENGINEER by Edvin Sutherland
[2022-08-27] MEDS ORDERED: HYDROCODONE/APAP 5/325 MG TAB PO PRN (12:54)
--- NOTE | 2022-08-27 13:41 | RAD REPORT ---
EXAM DESCRIPTION: CT - Thoracic Spine W/o Cont - 08/27/2022 1:22 pm CLINICAL HISTORY: Radiculopathy. T8 compression fracture COMPARISON: Abdomen Pelvis W Contrast dated 12/22/2021 TECHNIQUE: Axial CT imaging through the thoracic spine was performed with coronal and sagittal re-fo rmatted images. All CT scans are performed using dose optimization technique as appropriate and may include automated exposure control or mA/KV adjustment according to patient size. FINDINGS: Mild diffuse osteopenia. There are multiple mild compression deformities superior endplate of T5, T6 and T7. [id number] superior compression deformities affects T8 and T10. There is no significant canal compromise present. No paraspinal masses or hematoma. Numerous pulmonary nodules again seen compatible with metastatic disease. Liver metastatic disease al so noted. IMPRESSION: Generalized mild osteopenia is seen with multiple mild to moderate compression deformity is present, most notable at T8 and T10. No significant canal compromise.
--- NOTE | 2022-08-27 13:59 | P.PN ---
Subjective Date of Service: 08/27/22 Primary Care Provider: Kristopher Chief Complaint: Cholelithiasis Patient complaining of intermittent abdominal pain, pain rated at 3/10 during my examination. He also reported rectal pain, frequent urges to move his bowel (tenesmus). No fever. He denies any back pain. He has frequent diarrhea. Physical Examination - Vital Signs Temperature: 98.3 F Blood Pressure: 116/88 Pulse: 75 Respirations: 17 Pulse Ox (%): 92 Assessment And Plan - Current Problems (Diagnosis) (1) Cholelithiasis Current Visit: Yes Status: Acute Qualifiers: Cholelithiasis location: gallbladder Cholecystitis presence: without cholecystitis Biliary obstruction: without biliary obstruction Qualified Code(s): K80.20 - Calculus of gallbladder without cholecystitis without obstruction (2) Thoracic compression fracture Current Visit: Yes Status: Acute (3) Chronic diarrhea Current Visit: Yes Status: Acute (4) Tenesmus (rectal) Current Visit: Yes Status: Acute (5) Elevated LFTs Current Visit: Yes Status: Acute (6) Neutropenia Current Visit: Yes Status: Acute Qualifiers: Neutropenia type: secondary to cancer chemotherapy Qualified Code(s): D70.1 - Agranulocytosis secondary to cancer chemotherapy; T45.1X5A - Adverse effect of antineoplastic and immunosuppressive drugs, initial encounter (7) Colorectal cancer Current Visit: Yes Status: Chronic - Plan Physical Exam General: Alert, In no apparent distress HEENT: Sclerae nonicteric Neck: Supple, JVD not distended. Respiratory: Clear to auscultation bilaterally, Normal air movement Cardiovascular: Regular rate/rhythm, Normal S1 S2 Gastrointestinal: Normal bowel sounds, Non-distended, mild tenderness-right u pper quadrant Musculoskeletal: No tenderness, no back tenderness. Integumentary: No rashes Neurological: No focal motor deficit. Plan: MRCP demonstrates multiple calcified stones, no evidence of acute cholecystitis. Patient has chronic ALP elevation and chronic intermittent AST/ALT elevated Patient seen by surgery Dr. Leal who recommended no surgery. Patient right upper quadrant pain likely related to liver metastasis. We will treat with supportive measures including IV Dilaudid and [place]oy[place] as needed for pain. IV hydration. Patient is neutropenic but afebrile Empiric IV Zosyn Trial of belladonna/opium for tenesmus and rectal spasms Loperamide as needed for diarrhea. Obtain MRI of the thoracic spine to further evaluate T8 compression fracture noted on the CT. He will need follow-up with spine surgery regarding the T8 compression fracture. Patient denies any leg weakness or numbness or urine or stool incontinence.
[2022-08-27] MEDS ORDERED: OPIUM/BELLADONNA SUPPOS (30-16.2 MG) PR ONE (14:00)
[2022-08-27] MEDS ORDERED: RIVAROXABAN 10 MG TABLET PO SCH (17:00)
[2022-08-27] MEDS ORDERED: POTASSIUM CL SA 10 MEQ TAB PO ONE (17:10)
[2022-08-27] MEDS: PREGABALIN 50 MG CAP PO SCH (19:53)
[2022-08-27 21:53] VITALS: O2SAT 94
[2022-08-28] MEDS: PIPER TAZO 3.375 GM in NA CHLORIDE 0.9% 100 ML IV SCH ×2 (00:42→08:07)
[2022-08-28] MEDS: Ringers Lactate 1,000 ML IV SCH ×2 (00:42→04:56)
[2022-08-28 03:43] LABS: Absolute Lymphocytes (CBC) 0.6 K/uL (0.7-4.9); Hematocrit 32.9 % (39.6-49.0); Lymphocytes % 31.1 % (15.3-44.8); MCV 89.3 fL (80-100); MPV 6.5 fL (7.6-11.3); RBC Red Blood Cell Count 3.69 M/uL (4.33-5.43)
[2022-08-28 04:00] LABS: Albumin 1.9 g/dL (3.4-5.0); Bilirubin Total 0.9 mg/dL (0.2-1.0); Potassium 3.7 mmol/L (3.5-5.1); Protein, Total 6.1 g/dL (6.4-8.2)
[2022-08-28] MEDS: HYDROMORPHONE HCL 1 MG/ML INJ IV PRN (08:06)
[2022-08-28] MEDS: PREGABALIN 50 MG CAP PO SCH (08:07)
[2022-08-28 08:27] VITALS: BP 123/83; TEMP 97.6
[2022-08-28] MEDS ORDERED: POTASSIUM CL SA 10 MEQ TAB PO ONE (09:00)
--- NOTE | 2022-08-28 10:23 | P.DS ---
Admission Date: 08/26/22 Discharge Date: 08/28/22 Primary Care Provider: Kristopher Disposition: ROUTINE DISCHARGE Discharge Condition: FAIR Reason for Admission: Cholelithiasis - Problems (1) Cholelithiasis Current Visit: Yes Status: Acute Qualifiers: Cholelithiasis location: gallbladder Cholecystitis presence: without cholecystitis Biliary obstruction: without biliary obstruction Qualified Code(s): K80.20 - Calculus of gallbladder without cholecystitis without obstruction (2) Thoracic compression fracture Current Visit: Yes Status: Acute (3) Chronic diarrhea Current Visit: Yes Status: Acute (4) Tenesmus (rectal) Current Visit: Yes Status: Acute (5) Elevated LFTs Current Visit: Yes Status: Acute (6) Neutropenia Current Visit: Yes Status: Acute Qualifiers: Neutropenia type: secondary to cancer chemotherapy Qualified Code(s): D70.1 - Agranulocytosis secondary to cancer chemotherapy; T45.1X5A - Adverse effect of antineoplastic and immunosuppressive drugs, initial encounter (7) Colorectal cancer Current Visit: Yes Status: Chronic (8) Pulmonary metastasis Current Visit: Yes Status: Acute (9) Liver metastasis Current Visit: Yes Status: Acute Brief History of Present Illness: Patient is a 36 year old male with metastatic stage 4 colorectal cancer currently undergoing chemotherapy who presented to the ED with complaints of neck pain and abdominal pain. His labs were noted to be significant for WBC 1.1, hgb 12.1, tbili 1.4, AST 85, alk phos 643. CT abdomen pelvis showed "New T10 compression fracture with less than 20% loss of height. No bony retropulsion. Pulmonary and hepatic metastatic disease is not significantly changed. Cholelithiasis. Stones present near the gallbladder neck. Small volume of new but nonspecific pelvic free fluid." Follow up abdominal US showed "Cholelithiasis but no sonographic evidence of acute cholecystitis." MRCP showed "Small calcified stones in the region of the gallbladder neck and cystic duct. Mild pericholecystic fluid present but the gallbladder is not distended. Suspicion for acute cholecystitis is low. No biliary ductal dilatation or evidence of choledocholithiasis identified." His pain continued despite several rounds of IV narcotics. Dr. Leal was contacted and agreed to consult. Patient admitted for further management. Hospital Course: Patient admitted to the medical floor and treated supportively with IV fluid, IV Dilaudid and oral [place] as needed for pain. Also placed on empiric IV Zosyn. He was seen and evaluated by general surgery Dr. Leal who recommended only medical treatment, patient deemed not a candidate for surgery. MRCP also did not suggest acute cholecystitis. Patient pain was managed with medications. Imaging also showed T8 and T10 compression deformity, no spinal canal compr omise, no evidence of metastasis on the CT. Patient denies any back pain. Recommended MRI of the thoracic spine. This can be done as an outpatient to evaluate for spine metastasis. General surgery also recommended a trial of belladonna/opium suppository which has been prescribed. Patient's symptoms have improved, he is tolerating diet and ambulatory. He is discharged to follow-up with his oncologist. Vital Signs/Physical Exam: Temp Pulse Resp BP Pulse Ox 97.6 F 78 18 123/83 98 08/28/22 08:00 08/28/22 08:00 08/28/22 08:36 08/28/22 08:00 08/28/22 08:36 General: Alert, In no apparent distress, Oriented x3 HEENT: Mucous membr. moist/pink Neck: JVD not distended Respiratory: Clear to auscultation bilaterally, Normal air movement Cardiovascular: Regular rate/rhythm Gastrointestinal: Soft and benign Musculoskeletal: No swelling Neurological: Normal strength at 5/5 x4 extr Laboratory Data at Discharge: WBC 2.00 K/uL (4.3-10.9) L 08/28/22 03:03 Hgb 10.9 g/dL (13.6-17.9) L 08/28/22 03:03 Hct 32.9 % (39.6-49.0) L 08/28/22 03:03 Plt Count 207 K/uL (152-406) 08/28/22 03:03 PT 19.1 SECONDS (9.5-12.5) H 08/26/22 13:10 INR 1.74 08/26/22 13:10 Sodium 135 mmol/L (136-145) L D 08/28/22 03:03 Potassium 3.7 mmol/L (3.5-5.1) 08/28/22 03:03 BUN 8 mg/dL (7-18) 08/28/22 03:03 Creatinine 0.37 mg/dL (0.70-1.30) L 08/28/22 03:03 Glucose 99 mg/dL (74-106) 08/28/22 03:03 Phosphorus 3.1 mg/dL (2.5-4.9) 08/27/22 03:09 Magnesium 2.0 mg/dL (1.6-2.4) 08/27/22 03:09 Total Bilirubin 0.9 mg/dL (0.2-1.0) 08/28/22 03:03 AST 48 U/L (15-37) H 08/28/22 03:03 ALT 33 U/L (16-61) 08/28/22 03:03 Alkaline Phosphatase 506 U/L (45-117) H 08/28/22 03:03 Triglycerides 126 mg/dL (<150) 08/27/22 03:09 Cholesterol 166 mg/dL (<200) 08/27/22 03:09 HDL Cholesterol 64 mg/dL (40-60) H 08/27/22 03:09 Cholesterol/HDL Ratio 2.59 08/27/22 03:09 Home Medications: Acetaminophen [Acetaminophen Extra Strength] 1,000 mg PO Q6H 08/26/22 Pregabalin [Lyrica] 50 mg PO BID 08/26/22 Rivaroxaban [Xarelto*] 10 mg PO DAILY 08/26/22 Tramadol HCl [Ultram] 50 mg PO PRN 08/26/22 Opium/Belladonna Alkaloids [Belladonna-Opium 16.2-30 Supp] 1 each RC BID #60 supp.rect 08/27/22 Amox/Clavulanate [Augmentin 875-125 Tab] 875 mg PO BID #12 tab 08/28/22 Hydrocodone 5/APAP 325 [[place] 5/325*] 1 tab PO Q4H PRN #20 tab 08/28/22 Lidocaine Viscous 2% Soln [Xylocaine Viscous Oral 2%*] 15 ml PO Q6HP PRN #1 bottle 08/28/22 New Medications: Lidocaine Viscous 2% Soln [Xylocaine Viscous Oral 2%*] 15 ml PO Q6HP PRN #1 bottle PRN Reason: GASTRIC UPSET/INDIGESTION Amox/Clavulanate [Augmentin 875-125 Tab] 875 mg PO BID #12 tab Opium/Belladonna Alkaloids [Belladonna-Opium 16.2-30 Supp] 1 each RC BID #60 supp.rect Hydrocodone 5/APAP 325 [[place] 5/325*] 1 tab PO Q4H PRN #20 tab PRN Reason: Pain Scale 5-7 (Moderate) Diet: Regular Activity: Ad cecil Followup: Donte Summers MD [Primary Care Provider] - Time spent managing pt's care (in minutes): 33
== END 2022-08-28 12:26 | disposition home or self-care (01) | DRG 445 ==
LOC: ER 11:51 → ERHOLD 19:46 → 2ND 08-27 13:15
PROVIDERS: ADMIT Internal Medicine; ATTEND Internal Medicine
DX: K80.20 Calculus of gallbladder without cholecystitis without obstruction (principal); C18.9 Malignant neoplasm of colon, unspecified; C78.00 Secondary malignant neoplasm of unspecified lung; C78.7 Secondary malignant neoplasm of liver and intrahepatic bile duct; M84.48XA Pathological fracture, other site, initial encounter for fracture; D70.1 Agranulocytosis secondary to cancer chemotherapy; R19.7 Diarrhea, unspecified; R19.8 Other specified symptoms and signs involving the digestive system and abdomen; F12.90 Cannabis use, unspecified, uncomplicated; Z92.21 Personal history of antineoplastic chemotherapy
CPT/HCPCS: 36415; 71045; 71260; 72128; 74177; 74181; 76705; 76882; 80048; 80053; 80061; 80076; 83735; 83880; 84100; 84443; 84484; 85025; 85610; 87811; 93005; 93880; 94760; 96361; 96365; 96375; 99285; J1170; J2405; J2543; J7030; J7120; Q0163; Q9967

== ENCOUNTER 2022-10-25 09:03 | Inpatient (IN) | payer OTHER ==
--- OUTSIDE RECORDS SUMMARY | 2022-10-25 09:06 | XMS REPORT | Continuity of Care Document ---
:1985 Author Organization [facility] t Address 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 t & Plan: 00 [...] Colorectal Colorectal Disease Active 2021-09 Overview : [place] cancer cancer 0-11 [facility] 00:00: g of this 00 note might be different from the original. 6 months chemo Allergies, Adverse Reactions, Alerts Allergy Allergy Status Severity Reaction(s) Onset Inactive Treating Comm ents Source Name Type Date Date Clinician Sulfa Allergy Active 2021-09 [place] [facility] ics substanc 00:00: e 00 Social History Social Habit Start Date Stop Date Quantity Comments Source History of tobacco Passive smoker [facility] use Exposure to 2022-06-12 2022-06-22 Not sure [facility] SARS-CoV-2 (event) 00:00:00 06:08:00 Alcohol intake 2022-06-22 2022-06-22 Lifetime [facility] 00:00:00 00:00:00 non-drinker (finding) Tobacco Comment 2022-06-22 2022-06-22 Smoking History [facility] 00:00:00 00:00:00 Packs/day: 1 PPD. Recorded: 0 Sex Assigned At [birth year] [facility] 00:00:00 00:00:00 Smoking Status Start Date Stop Date Source Tobacco smoking consumption unknown [facility] Ex-smoker 2022-06-22 00:00:00 2022-06-22 00:00:00 [facility] Medications Ordered Filled Start Stop Current Ordering Indication Dosage Frequency Signature Comments Components Source Medication Medication Date Date Medication? Clinician (SIG) Name Name No known 2021-09 No No known [place] medications medication He alth 16:17: s 06 Procedures Procedure Date / Time Performed Performing Clinician Sour e MRI BRAIN W WO CONTRAST 2021-07-15 15:24:25 Frank, Sigmund [facility] BRAIN W WO CONTRAST 2021-07-15 15:24:25 Frank, Sigmund [facility] Encounters Start End Encounter Admission Attending Care Care Encounter Source Date/Time Date/Time Type Type Clinicians Facility Department ID 2022-06-22 Outpatient [facility] [id number] [place] 14:54:25 [id number] [facility] 2022-06-21 Outpatient [facility] [id number] [place] 15:36:47 [id number] [facility] 2022-01-14 [id number] 10:00:[address] [place] [address] 2021-12-24 Outpatient SYSTEM, [facility] [id number] 11:45:50 PROVIDER Bashir moore 2022-06-22 2022-06-22 Telemedici Frank, UTP 6400 [id number] [place] 15:00:00 16:05:[address] [id number] Health [id number] 2021-07-15 2021-07-15 EXT [facility] OP Frank, EXT MSRDP [id number] [place] 00:00:00 00:00:00 Sigmund LOCATION [id number] H ealth [id number] 2021-07-15 2021-07-15 EXT [facility] OP Frank, EXT MSRDP [id number] [place] 00:00:00 00:00:00 Sigmund LOCATION [id number] H ealth [id number] Results This patient has no known results.
[2022-10-25] MEDS ORDERED: ONDANSETRON 4 MG/2 ML VIAL ONE (09:37)
[2022-10-25] MEDS ORDERED: HYDROMORPHONE HCL 1 MG/ML INJ ONE (09:37)
[2022-10-25] MEDS ORDERED: NA CHLORIDE 0.9% 1,000 ML ONE ×2 (09:38→11:29)
[2022-10-25 10:30] LABS: Absolute Lymphocytes (CBC) 1.2 K/uL (0.7-4.9); Hematocrit 47.3 % (39.6-49.0); Lymphocytes % 4.2 % (15.3-44.8); MCV 88.8 fL (80-100); MPV 7.4 fL (7.6-11.3); RBC Red Blood Cell Count 5.33 M/uL (4.33-5.43)
--- NOTE | 2022-10-25 10:37 | RAD REPORT ---
EXAM DESCRIPTION: RAD - Knee Left 3 View - 10/25/2022 10:24 am CLINICAL HISTORY: SWELLING COMPARISON: No comparisons FINDINGS: No fracture, dislocation or joint effusion.
[2022-10-25 11:01] LABS: Albumin 1.5 g/dL (3.4-5.0); Potassium 3.9 mmol/L (3.5-5.1); Protein, Total 5.3 g/dL (6.4-8.2)
[2022-10-25 11:02] LABS: Bilirubin Total 6.4 mg/dL (0.2-1.0)
[2022-10-25] MEDS ORDERED: NA CHLORIDE 0.9% 250 ML ONE (11:29)
[2022-10-25] MEDS ORDERED: VANCOMYCIN 1 GM/VIAL ONE (11:29)
[2022-10-25] MEDS ORDERED: NA CHLORIDE 0.9% 100 ML ONE (11:29)
[2022-10-25] MEDS ORDERED: CEFEPIME 1 GM/VIAL ONE (11:29)
[2022-10-25 11:39] LABS: Blood Morphology Comment NOT SEEN (NOT SEEN); Platelet Estimate ADEQ
--- NOTE | 2022-10-25 11:40 | RAD REPORT ---
EXAM DESCRIPTION: RAD - Knee Right 3 View - 10/25/2022 10:14 am CLINICAL HISTORY: SWELLING COMPARISON: No comparisons FINDINGS: Bipartite patella, normal variant. No acute fracture or dislocation suspected. No suprapat ellar joint effusion.
--- NOTE | 2022-10-25 11:40 | RAD REPORT ---
EXAM DESCRIPTION: RAD - Foot Right 3 View - 10/25/2022 10:14 am CLINICAL HISTORY: PAIN COMPARISON: Knee Left 3 View dated 10/25/2022; Knee Right 3 View dated 10/25/2022 FINDINGS: No acute fracture or dislocation seen. Small calcaneal spurs.
--- NOTE | 2022-10-25 11:44 | RAD REPORT ---
EXAM DESCRIPTION: CT - Head Brain Wo Cont - 10/25/2022 11:37 am CLINICAL HISTORY: CONFUSED Headache, drowsiness COMPARISON: Head Brain Wo Cont dated 07/13/2022; Head Brain Wo Cont dated 09/07/2016 TECHNIQUE: All CT scans are performed using dose optimization technique as appropriate and may inclu de automated exposure control or mA/KV adjustment according to patient size. FINDINGS: No intracranial hemorrhage, hydrocephalus or extra-axial fluid collection.No areas of brai n edema or evidence of midline shift. Small area of left frontal gliosis is again seen, unchanged. The paranasal sinuses and mastoids are clear. Postsurgical changes left frontal calvarium. IMPRESSION: No acute intracranial abnormality.
--- NOTE | 2022-10-25 11:47 | RAD REPORT ---
EXAM DESCRIPTION: CTAbdomen Pelvis W Contrast - 10/25/2022 11:37 am CLINICAL HISTORY: Abdominal pain. ABD PAIN COMPARISON: Abdomen Pelvis W Contrast dated 12/22/2021; CT ABD PELVIS W CONTRAST dated 01/31/2008 TECHNIQUE: Biphasic CT imaging of the abdomen and pelvis was performed with 100 ml non-ionic IV cont rast. All CT scans are performed using dose optimization technique as appropriate and may include automated exposure control or mA/KV adjustment according to patient size. FINDINGS: Innumerable nodules are present in the lung bases compatible with metastatic disease. The largest nodule is anterior right base 20 mm. Innumerable hepatic metastatic deposits are present throughout parenchyma. Spleen, pancreas, adrenal glands and kidneys are within limits. Cholelithiasis small stone in the gallbladder neck region. Mild ascites. No bowel obstruction. No free intraperitoneal air seen. No acute hemorrhage into intra -abdominal or pelvic findings. Postoperative changes lumbar spine. Mild chronic appearing wedge compression deformities lower thorac ic levels. IMPRESSION: Innumerable hepatic and lung metastatic deposits. Mild ascites. There is no acute intra-abdominopelvic finding demonstrated.
--- NOTE | 2022-10-25 12:13 | ER ---
Nurse's Notes [facility] Name: Ever Acosta Age: 37 yrs Sex: Male : 1985 Arrival Date: 10/25/2022 Time: 09:04 Bed 8 Private MD: Donte Summers Diagnosis: Severe sepsis with septic shock;Colorectal cancer with metastasis to the liver and lungs;Intractable nausea and vomiting Presentation: 10/25 09:11 Chief complaint: Patient states: colorectal CA with mets to lung and liver; saw onc on [facility] Tuesday and bili was 5; vomiting x3 days. Coronavirus screen: Vaccine status: Patient reports being unvaccinated. Client denies travel out of the [place] in the last 14 days. Ebola Screen: Patient negative for fever greater than or equal to 101.5 degrees Fahrenheit, and additional compatible Ebola Virus Disease symptoms Patient denies exposure to infectious person. Patient denies travel to an Ebola-affected area in the 21 days before illness onset. Initial Sepsis Screen: Does the patient meet any 2 criteria? HR > 90 bpm. Does the patient have a suspected source of infection? No. Patient's initial sepsis screen is negative. Risk Assessment: Do you want to hurt yourself or someone else? Patient reports no desire to harm self or others. 09:11 Method Of Arrival: Wheelchair [facility] 09:11 Acuity: TORIBIO 2 [facility] Triage Assessment: 09:15 General: Appears slender, Behavior is calm, cooperative, appropriate for age. Pain: [facility] Complains of pain in abdomen. GI: Reports lower abdominal pain, upper abdominal pain, bloating. Historical: - Allergies: 09:14 Sulfa (Sulfonamide Antibiotics); [facility] - PMHx: 09:14 CA mets to lungs \T\ liver; [facility] 09:15 brain tumor; colorectal ca; [facility] - Immunization history:: Adult Immunizations up to date. - Social history:: Patient uses street drugs, marijuana, Smoking status: unknown. Screenin:[address] [facility] ED Fall Risk Assessment (Adult) Confusion or Disorientation No (0 pts) ss Intoxicated or Sedated No (0 pts) Impaired Gait Yes (1 pt) Mobility Assist Device Used No (0 pt) Altered Elimination No (0 pt) Score/Fall Risk Level 3 or more points = High Risk Oriented to surroundings, Maintained a safe environment, Educated pt \T\ family on fall prevention, incl call for assistance when getting out of bed, Assessed \T\ reinforced patient's understanding of fall precautions, Hourly rounding (assess needs \T\ fall precautionary measures) done, Used ambulatory aids as needed (educated on \T\ assisted with). Abuse screen: Denies threats or abuse. Denies injuries from another. Nutritional screening: No deficits noted. Tuberculosis screening: Never had TB. Assessment: 09:16 General: Appears distressed, uncomfortable, Behavior is calm, Reports feeling ill for ss 2-3 days. Pain: Complains of pain in right upper quadrant and abdomen Pain currently is 8 out of 10 on a pain scale. Quality of pain is described as aching, tender. Neuro: Level of Consciousness is awake, obeys commands, lethargic, Oriented to person, place, time, situation. Cardiovascular: Capillary refill < 3 seconds is brisk in bilateral fingers. Respiratory: Airway is patent Respiratory effort is even, unlabored, Respiratory pattern is regular, symmetrical. GI: Reports nausea, vomiting, since x 3 days. GI: Abdomen is round non-distended, Abdomen is tender to palpation X 4 quads. Hepatomegaly noted. : No signs and/or symptoms were reported regarding the genitourinary system. Derm: Skin is intact, is healthy with good turgor, Skin is pink, warm \T\ dry. normal. Musculoskeletal: Range of motion: intact in all extremities. Injury Description: abrasions noted to bilateral knees and R elbow that have band aids in place prior to arrival. 11:07 Reassessment: US at bedside. [facility] 11:10 Reassessment: paged phlebotomy to assist with collecting blood cultures. ss 11:30 Reassessment: Pt in CT at this time. ss 13:00 Reassessment: Family at bedside. jl7 15:00 Reassessment: Family remains at bedside. 7 16:30 Reassessment: Pt's mom requesting a regular bed admission, not ICU due to pt being jl7 placed on hospice, hospitalist notified. Vital Signs: 09:11 BP 101 / 69; Pulse 148; Resp 18; Temp 97.6; Pulse Ox 94% ; Weight 63.5 kg; Height 5 ft. jh5 10 in. (177.80 cm); Pain 8/10; 09:30 BP 118 / 87; Pulse 146; Resp 16; Pulse Ox 97% ; jl7 10:45 BP 116 / 76; Pulse 148; Resp 16; Pulse Ox 97% ; jl7 11:07 BP 105 / 84; Pulse 143; Resp 19; Pulse Ox 94% ; jl7 11:14 BP 98 / 78; Pulse 140; ss 13:38 BP 113 / 85; Pulse 125; Resp 14; Pulse Ox 95% ; jl7 14:15 BP 122 / 98; Pulse 127; Resp 20; Pulse Ox 97% ; jl7 15:00 BP 117 / 97; Pulse 129; Resp 20; Pulse Ox 94% ; jl7 15:45 BP 111 / 92; Pulse 138; Resp 20; Pulse Ox 94% ; jl7 16:30 BP 121 / 94; Pulse 133; Resp 15; Pulse Ox 94% ; jl7 17:15 BP 122 / 100; Pulse 135; Resp 21; Pulse Ox 92% ; jl7 18:00 BP 123 / 92; Pulse 135; Resp 19; Pulse Ox 93% ; jl7 09:11 Body Mass Index 20.09 (63.50 kg, 177.80 cm) 5 NIH Stroke Scale Scores: 09:11 NIHSS Score: 0 7 ED Course: 09:04 Patient arrived in ED. am2 09:04 Donte Summers MD is Private Physician. am2 09:05 [facility] jh7 09:05 Edmundo Chandler MD is Attending Physician. jh7 09:14 Triage completed. jh5 09:15 Arm band placed on left wrist. jh5 09:15 Client placed on continuous cardiac and pulse oximetry monitoring. NIBP monitoring jl7 applied. 09:15 Warm blanket given. jl7 09:25 Tanner Boogie, MIKE is Primary Nurse. jl7 09:59 EKG done, by ED staff, reviewed by Yue OCHOA. em1 10:15 Accessed Port-a-Cath. using accessed w/ # 20 Mcneil needle, 20G Nexia IV catheter ss ,sterile technique, per hospital protocol. Clean \T\ dry. Dressing intact. No blood return. Flushes easily. Pt reports that they have had trouble getting blood return from port o cath in the past. 10:30 Initial lab(s) drawn, by me, sent to lab. ss 10:35 Patient has correct armband on for positive identification. ss 10:35 No provider procedures requiring assistance completed. ss 12:10 Lio Regan is Hospitalizing Provider. jh7 12:27 First set of blood cultures drawn by me. jl7 12:45 Second set of blood cultures drawn by me. jl7 12:49 Inserted saline lock: 24 gauge in left wrist, using aseptic technique. jl7 18:24 Patient admitted, IV remains in place. ss Administered Medications: 10:15 Drug: NS 0.9% 1000 ml Route: IV; Rate: 1 bolus; Site: Port-a-cath; ss 12:00 Follow up: Response: No adverse reaction; IV Status: Completed infusion; IV Intake: jl7 1000ml 10:35 Drug: Zofran (Ondansetron) 4 mg Route: IVP; Site: Port-a-cath; ss 11:00 Follow up: Response: No adverse reaction; Nausea is decreased jl7 10:39 Drug: Dilaudid (HYDROmorphone) 1 mg Route: IVP; Site: Port-a-cath; ss 10:56 Follow up: Response: No adverse reaction; Pain is decreased ss 12:20 Drug: Phenergan (promethazine) 12.5 mg Route: IVP; Site: Port-a-cath; jl7 12:40 Follow up: Response: No adverse reaction; Nausea is decreased jl7 12:30 Drug: Cefepime 1 grams Route: IVPB; Rate: 200 ml/hr; Infused Over: 30 mins; Site: [facility] Port-a-cath; 13:00 Follow up: Response: No adverse reaction; IV Status: Completed infusion; IV Intake: jl7 200ml 12:30 Drug: NS 0.9% 1000 ml Route: IV; Rate: 1 bolus; Site: Port-a-cath; jl7 13:30 Follow up: Response: No adverse reaction; IV Status: Completed infusion; IV Intake: jl7 1000ml 12:49 Drug: Albumin 25 grams Volume: 100 ml; Route: IVPB; Site: left wrist; jl7 13:49 Follow up: Response: No adverse reaction; IV Status: Completed infusion jl7 13:00 Drug: vancoMYCIN 1 grams Route: IVPB; Infused Over: 2 hrs; Site: Port-a-cath; jl7 15:00 Follow up: Response: No adverse reaction; IV Status: Completed infusion jl7 13:25 Drug: ProTONIX (pantoprazole) 40 mg Route: IVP; Site: Port-a-cath; jl7 14:08 Follow up: Response: No adverse reaction jl7 14:08 Drug: ProTONIX (pantoprazole) 8 mg/hr Route: IV; Rate: 25 ml/hr; Site: left wrist; jl7 15:49 Follow up: Response: No adverse reaction; IV Status: Infusion continued upon admission jl7 15:32 Drug: Phenergan (promethazine) 12.5 mg Route: IVP; Site: Port-a-cath; iw 16:00 Follow up: Response: No adverse reaction; Nausea is decreased jl7 Medication: 11:14 VIS not applicable for this client. ss Intake: 12:00 IV: 1000ml; Total: 1000ml. jl7 13:00 IV: 200ml; Total: 1200ml. jl7 13:30 IV: 1000ml; Total: 2200ml. jl7 Outcome: 12:13 Decision to Hospitalize by Provider. [facility] 18:24 Admitted to Tele accompanied by tech, family with patient, via stretcher, Report called ss to MIKE Sheffield 18:24 Condition: unchanged 18:24 Instructed on the need for admit. 18:25 Patient left the ED. NIH Stroke Scale - NIH Stroke Score Date: 10/25/2022 Time: 09:11 Total Score = 0 1a. Level of Consciousness (LOC) - 0(Alert) 1b. Level of Consciousness (LOC) (Month \T\ Age) - 0(Both) 1c. LOC Commands (Open \T\ Closes Eyes/Supervisor Plastic Sheets) - 0(Both) 2. Best Gaze (Lateral Gaze Paresis) - 0(Normal) 3. Visual Field Loss - 0(No visual loss) 4. Facial Palsy - 0(Normal) 5a. Left Arm: Motor (10-second hold) - 0(No drift) 5b. Right Arm: Motor (10-second hold) - 0(No drift) 6a. Left Leg: Motor (5-second hold - always test supine) - 0(No drift) 6b. Right Leg: Motor (5-second hold - always test supine) - 0(No drift) 7. Limb Ataxia (finger/nose \T\ heel/holder - test with eyes open) - 0(Absent) 8. Sensory Loss (pinprick arms/legs/face) - 0(Normal) 9. Best Language: Aphasia (description/naming/reading) - 0(No aphasia) 10. Dysarthria (speech clarity - read or repeat words) - 0(Normal) 11. Extinction and Inattention (visual/tactile/auditory/spatial/personal) - 0(No abnormality) Initials: [facility] Signatures: Becky Billingsley, RN RN Shawn Thapa em1 Meagan Toney RN RN ss Tanner Boogie RN RN 7 June Garza am2 Aixa Barker RN RN [facility] [place] [id number] Corrections: (The following items were deleted from the chart) 09:15 09:14 PMHx: colorectal cancer; [place] [id number] 09:15 09:14 PMHx: BRAIN TUMOR; [place] [id number] 09:15 09:14 PSHx: Craniotomy; [place] [id number]
--- NOTE | 2022-10-25 12:13 | EDPHYS ---
Physician Documentation [facility] Name: Ever Aocsta Age: 37 yrs Sex: Male : 1985 Arrival Date: 10/25/2022 Time: 09:04 Bed 8 Private MD: Donte Summers ED Physician Edmundo Chandler HPI: 10/25 09:11 This 37 yrs old Male presents to ER via Wheelchair with complaints of Abdominal Pain, jh7 Nausea, Decreased Appetite, General Weakness. 09:11 The patient presents with abdominal pain in the right upper quadrant. Onset: The jh7 symptoms/episode began/occurred yesterday. The symptoms do not radiate. Associated signs and symptoms: Pertinent positives: nausea and vomiting, Decreased appetite, increased periods of confusion, ascites, jaundice, Pertinent negatives: diarrhea, dysuria, fever, shortness of breath. 37-year-old male presents with right upper quadrant pain, and nausea vomiting since yesterday. The patient reports decreased appetite for the past week. He has a history of stage IV colorectal cancer with mets to the liver and lung. Reports that he saw his oncologist Dr. Sin 1 week ago who noticed new jaundice and increasing ascites. Mom reports that he lost his balance and fell yesterday injuring bilateral knees and right foot. Also reports increased periods of confusion. States that he had a seizure July 13 and has a history of a craniotomy 6 years ago.. Historical: - Allergies: 09:14 Sulfa (Sulfonamide Antibiotics); jh5 - PMHx: 09:14 CA mets to lungs \T\ liver; jh5 09:15 brain tumor; colorectal ca; jh5 - Immunization history:: Adult Immunizations up to date. - Social history:: Patient uses street drugs, marijuana, Smoking status: unknown. ROS: 09:11 ENT: Negative for injury, pain, and discharge, Neck: Negative for injury, pain, and jh7 swelling, Cardiovascular: Negative for chest pain, palpitations, and edema, Respiratory: Negative for shortness of breath, cough, wheezing, and pleuritic chest pain. 09:11 Back: Negative for injury and pain, Neuro: Negative for headache, weakness, numbness, tingling, and seizure. 09:11 Constitutional: Positive for malaise, Negative for fever. 09:11 Eyes: Positive for icterus, Negative for vision loss. 09:11 Abdomen/GI: Positive for abdominal pain, nausea and vomiting, Negative for diarrhea, constipation, black/tarry stool, rectal bleeding. 09:11 Abdomen/GI: 09:11 Skin: Positive for abrasion(s), jaundice. 09:11 All other systems are negative. Exam: 09:11 Head/Face: Normocephalic, atraumatic. ENT: Nares patent. No nasal discharge, no jh7 septal abnormalities noted. Oropharynx with no redness, swelling, or masses, exudates, or evidence of obstruction, uvula midline. Mucous membranes moist. Neck: Trachea midline, no thyromegaly or masses palpated, and no cervical lymphadenopathy. Supple, full range of motion without nuchal rigidity, or vertebral point tenderness. No Meningismus. Cardiovascular: Regular rate and rhythm with a normal S1 and S2. No gallops, murmurs, or rubs. Normal PMI, no JVD. No pulse deficits. Respiratory: Lungs have equal breath sounds bilaterally, clear to auscultation and percussion. No rales, rhonchi or wheezes noted. No increased work of breathing, no retractions or nasal flaring. Back: No spinal tenderness. No costovertebral tenderness. Full range of motion. MS/ Extremity: Pulses equal, no cyanosis. Neurovascular intact. Full, normal range of motion. Neuro: Awake and alert, GCS 15, oriented to person, place, time, and situation. Cranial nerves II-XII grossly intact. Motor strength 5/5 in all extremities. Sensory grossly intact. Cerebellar exam normal. Normal gait. 09:11 Constitutional: The patient appears alert, awake, obviously ill, in obvious pain, pale, uncomfortable. 09:11 Eyes: Sclera: icterus, is present. 09:11 Abdomen/GI: Inspection: distension, that is moderate, Ascites, Bowel sounds: normal, Palpation: moderate abdominal tenderness, in the right upper quadrant. 09:11 Skin: injury, abrasion(s), moderate sized abrasion noted, of the bilateral knees, avulsion(s), A moderate sized of the right great toe, contusion(s), of the bilateral knees. Vital Signs: 09:11 BP 101 / 69; Pulse 148; Resp 18; Temp 97.6; Pulse Ox 94% ; Weight 63.5 kg; Height 5 ft. jh5 10 in. (177.80 cm); Pain 8/10; 09:30 BP 118 / 87; Pulse 146; Resp 16; Pulse Ox 97% ; jl7 10:45 BP 116 / 76; Pulse 148; Resp 16; Pulse Ox 97% ; jl7 11:07 BP 105 / 84; Pulse 143; Resp 19; Pulse Ox 94% ; jl7 11:14 BP 98 / 78; Pulse 140; ss 13:38 BP 113 / 85; Pulse 125; Resp 14; Pulse Ox 95% ; jl7 14:15 BP 122 / 98; Pulse 127; Resp 20; Pulse Ox 97% ; jl7 15:00 BP 117 / 97; Pulse 129; Resp 20; Pulse Ox 94% ; jl7 15:45 BP 111 / 92; Pulse 138; Resp 20; Pulse Ox 94% ; jl7 16:30 BP 121 / 94; Pulse 133; Resp 15; Pulse Ox 94% ; jl7 17:15 BP 122 / 100; Pulse 135; Resp 21; Pulse Ox 92% ; jl7 18:00 BP 123 / 92; Pulse 135; Resp 19; Pulse Ox 93% ; jl7 09:11 Body Mass Index 20.09 (63.50 kg, 177.80 cm) 5 NIH Stroke Scale Scores: 09:11 NIHSS Score: 0 [facility] MDM: 09:05 Patient medically screened. [facility] 12:10 Differential diagnosis: cholecystitis, Cholelithiasis, diverticulitis, gastritis, GI 7 Bleed, pancreatitis, Pyelonephritis. Data reviewed: vital signs, nurses notes, lab test result(s), EKG, radiologic studies, CT scan, plain films, ultrasound. Consideration of Admission/Observation Patient was admitted/placed on observation. Management of patient was discussed with the following: Hospitalist: Dr. Regan. I considered the following discharge prescriptions or medication management in the emergency department Medications were administered in the Emergency Department. See MAR. Independent interpretation of the following test(s) in the Emergency Department EKG: See my EKG interpretation above X-Ray: My interpretation is no acute findings. Historians other than the Patient: Parent: mom. Care significantly affected by the following chronic conditions: Cancer. Counseling: I had a detailed discussion with the patient and/or guardian regarding: the historical points, exam findings, and any diagnostic results supporting the discharge/admit diagnosis, the need for further work-up and treatment in the hospital. 12:14 Post IV fluid administration reassessment for Sepsis: Client prescribed 30 mL/kg IVF. [facility] Sepsis focused reassessment complete. Focused Assessment performed: October 25, 2022 at 12:15 Heart: Tachycardia noted. Lungs: Noted to be clear bilaterally. Capillary refill examination performed. Capillary refill noted to be < 2 seconds. Peripheral pulse evaluation performed. Radial Peripheral pulses noted to be 3+ normal. Skin examination performed. Skin noted to be pale. Current vital signs reviewed: Yes. Passive leg raise examination performed. Other: Sepsis protocol of 30 mL/KG equates to 1930 mL and patient was ordered 2000 mL. 13:05 ED course: The patient stated that he just vomited and that he has never seen vomit [facility] discolored before. Vomit was dark red with a large blood clot present. Notified admitting physician Dr. Jass snyder of this and ordered coags, type and screen, and Protonix.. 10/25 09:16 Order name: CBC with Diff [facility] 10/25 09:16 Order name: CMP [facility] 10/25 09:16 Order name: Lipase [facility] 10/25 09:16 Order name: Urine Microscopic Only [facility] 10/25 09:16 Order name: Lactate w/ 2H reflex if indic. [facility] 10/25 10:43 Order name: Blood Culture Adult (2) [facility] 10/25 10:43 Order name: CBC with Automated Diff; Complete Time: 11:43 EDNY 10/25 11:02 Order name: Comprehensive Metabolic Panel; Complete Time: 11:08 [facility]NY 10/25 11:02 Order name: Lipase; Complete Time: 11:08 [facility]NY 10/25 11:03 Order name: Lactate w/ 2H reflex if indic.; Complete Time: 11:08 [facility] 10/25 11:40 Order name: Manual Differential; Complete Time: 11:43 EDNY 10/25 13:11 Order name: PT-INR [facility] 10/25 13:11 Order name: Type And Screen [facility] 10/25 13:34 Order name: D-Dimer [facility] 10/25 09:16 Order name: CT Abd/Pelvis - IV Contrast Only [facility] 10/25 09:24 Order name: CT Head Brain wo Cont [facility] 10/25 09:28 Order name: XRAY Knee LEFT 3 view [facility] 10/25 09:28 Order name: XRAY Knee RIGHT 3 view [facility] 10/25 09:28 Order name: XRAY Foot RIGHT 3 View [facility] 10/25 09:45 Order name: US Abdomen Limited [facility] 10/25 10:37 Order name: RAD; Complete Time: 10:42 EDMS 10/25 13:34 Order name: Fibrinogen [facility] 10/25 13:42 Order name: SARS-COV-2 Antigen Rapid 10/25 13:43 Order name: Lactate Sepsis 2 HR Follow-up; Complete Time: 14:24 EDMS 10/25 13:43 Order name: Protime (+INR); Complete Time: 14:24 EDMS 10/25 13:52 Order name: ABO/RH no charge; Complete Time: 14:24 EDNY 10/25 13:55 Order name: Type and Screen; Complete Time: 14:24 [facility] 10/25 14:24 Order name: SARS-COV-2 Antigen Rapid; Complete Time: 14:59 EDMS 10/25 14:51 Order name: Fibrinogen [facility] 10/25 15:00 Order name: D-Dimer [facility] 10/25 09:16 Order name: IV Saline Lock; Complete Time: 13:02 [facility] 10/25 09:16 Order name: Labs collected and sent; Complete Time: 13:02 [facility] 10/25 09:17 Order name: EKG - Nurse/Tech; Complete Time: 09:59 [facility] 10/25 11:40 Order name: RAD; Complete Time: 11:43 EDMS 10/25 11:40 Order name: RAD; Complete Time: 11:43 EDMS 10/25 11:44 Order name: CT; Complete Time: 11:46 EDMS 10/25 11:47 Order name: CT; Complete Time: 11:47 EDMS 10/25 11:47 Order name: XRAY Chest (1 view) [facility] 10/25 12:41 Order name: US; Complete Time: 13:08 EDMS 10/25 13:25 Order name: RAD; Complete Time: 13:34 EDMS EC:31 Rate is 144 beats/min. Rhythm is regular. QRS [place] is Normal. VA interval is normal at jh7 120 msec. QRS interval is normal at 64 msec. QT interval is normal at 348 msec. No Q waves. Clinical impression: Sinus tachycardia. Administered Medications: 10:15 Drug: NS 0.9% 1000 ml Route: IV; Rate: 1 bolus; Site: Port-a-cath; ss 12:00 Follow up: Response: No adverse reaction; IV Status: Completed infusion; IV Intake: jl7 1000ml 10:35 Drug: Zofran (Ondansetron) 4 mg Route: IVP; Site: Port-a-cath; ss 11:00 Follow up: Response: No adverse reaction; Nausea is decreased jl7 10:39 Drug: Dilaudid (HYDROmorphone) 1 mg Route: IVP; Site: Port-a-cath; ss 10:56 Follow up: Response: No adverse reaction; Pain is decreased ss 12:20 Drug: Phenergan (promethazine) 12.5 mg Route: IVP; Site: Port-a-cath; jl7 12:40 Follow up: Response: No adverse reaction; Nausea is decreased jl7 12:30 Drug: Cefepime 1 grams Route: IVPB; Rate: 200 ml/hr; Infused Over: 30 mins; Site: [facility] Port-a-cath; 13:00 Follow up: Response: No adverse reaction; IV Status: Completed infusion; IV Intake: jl7 200ml 12:30 Drug: NS 0.9% 1000 ml Route: IV; Rate: 1 bolus; Site: Port-a-cath; jl7 13:30 Follow up: Response: No adverse reaction; IV Status: Completed infusion; IV Intake: jl7 1000ml 12:49 Drug: Albumin 25 grams Volume: 100 ml; Route: IVPB; Site: left wrist; jl7 13:49 Follow up: Response: No adverse reaction; IV Status: Completed infusion jl7 13:00 Drug: vancoMYCIN 1 grams Route: IVPB; Infused Over: 2 hrs; Site: Port-a-cath; jl7 15:00 Follow up: Response: No adverse reaction; IV Status: Completed infusion jl7 13:25 Drug: ProTONIX (pantoprazole) 40 mg Route: IVP; Site: Port-a-cath; jl7 14:08 Follow up: Response: No adverse reaction jl7 14:08 Drug: ProTONIX (pantoprazole) 8 mg/hr Route: IV; Rate: 25 ml/hr; Site: left wrist; jl7 15:49 Follow up: Response: No adverse reaction; IV Status: Infusion continued upon admission jl7 15:32 Drug: Phenergan (promethazine) 12.5 mg Route: IVP; Site: Port-a-cath; 16:00 Follow up: Response: No adverse reaction; Nausea is decreased jl7 Disposition: 10/26 07:12 Co-signature as Attending Physician, Edmundo Chandler MD I reviewed the patient's care rn provided by the Advanced Practice Provider and agree with the diagnosis and treatment plan. Disposition Summary: 10/25/22 12:13 Hospitalization Ordered Hospitalization Status: Inpatient Admission [facility] Provider: Lio Regan [facility] Condition: Fair [facility] Problem: chronic [facility] Symptoms: are unchanged [facility] Bed/Room Type: Standard [facility] Location: Telemetry/MedSurg (Inpatient)(10/25/22 17:37) Room Assignment: [facility] [place](10/25/22 17:37) Diagnosis - Severe sepsis with septic shock 7 - Colorectal cancer with metastasis to the liver and lungs jh7 - Intractable nausea and vomiting [facility] Forms: - Medication Reconciliation Form [facility] - SBAR form [facility] NIH Stroke Scale - NIH Stroke Score Date: 10/25/2022 Time: 09:11 Total Score = 0 1a. Level of Consciousness (LOC) - 0(Alert) 1b. Level of Consciousness (LOC) (Month \T\ Age) - 0(Both) 1c. LOC Commands (Open \T\ Closes Eyes/Shed Workers Supervisor) - 0(Both) 2. Best Gaze (Lateral Gaze Paresis) - 0(Normal) 3. Visual Field Loss - 0(No visual loss) 4. Facial Palsy - 0(Normal) 5a. Left Arm: Motor (10-second hold) - 0(No drift) 5b. Right Arm: Motor (10-second hold) - 0(No drift) 6a. Left Leg: Motor (5-second hold - always test supine) - 0(No drift) 6b. Right Leg: Motor (5-second hold - always test supine) - 0(No drift) 7. Limb Ataxia (finger/nose \T\ heel/holder - test with eyes open) - 0(Absent) 8. Sensory Loss (pinprick arms/legs/face) - 0(Normal) 9. Best Language: Aphasia (description/naming/reading) - 0(No aphasia) 10. Dysarthria (speech clarity - read or repeat words) - 0(Normal) 11. Extinction and Inattention (visual/tactile/auditory/spatial/personal) - 0(No abnormality) Initials: [facility] Signatures: Dispatcher [employer] Teodora Vargas RN RN dw Williams, Irene RN Edmundo Stephen MD MD rn Smirch, Shelby, RN RN ss Leal, Jahala, RN RN 7 Aixa Barker RN RN [facility] Yue [place], [place] [id number] Corrections: (The following items were deleted from the chart) 10/25 09: 09:14 PMHx: colorectal cancer; [place] [id number] 09:15 09:14 PMHx: BRAIN TUMOR; [place] [id number] 09 09:14 PSHx: Craniotomy; [place] [id number] 17:37 12:13 Intensive Care Unit [facility] 17:37 12:13 [facility]
[2022-10-25] MEDS ORDERED: PROMETHAZINE INJ 25 MG/ML AMP ONE ×3 (12:20→15:37)
[2022-10-25] MEDS ORDERED: ALBUMIN HUMAN 25% 100 ML IV ONE (12:22)
--- NOTE | 2022-10-25 12:40 | RAD REPORT ---
EXAM DESCRIPTION: US - Abdomen Exam Limited - 10/25/2022 11:16 am CLINICAL HISTORY: ruq pain COMPARISON: Abdomen Exam Complete dated 10/22/2022 FINDINGS: The gallbladder demonstrates multiple small gallstones. No pericholecystic fluid or gallbl adder wall thickening. The common bile duct is normal measuring 4 mm. The liver demonstrates multiple echogenic liver masses mild perihepatic fluid. IMPRESSION: Cholelithiasis without sonographic findings of acute cholecystitis.
[2022-10-25] MEDS ORDERED: PANTOPRAZOLE 40 MG INJ ONE (13:23)
--- NOTE | 2022-10-25 13:25 | RAD REPORT ---
[facility]45 pm CLINICAL HISTORY: Chest pain COMPARISON: August 2022 FINDINGS: Bilateral pulmonary nodules are without obvious change. Heart is normal size. Central venous line with its tip in the proximal superior vena cava Artifact overlies the right chest obscuring detail.
[2022-10-25 13:42] LABS: Protime INR 4.15
[2022-10-25 14:24] LABS: SARS-CoV-2 Antigen Rapid Res Negative (Negative)
[2022-10-25] MEDS ORDERED: ACETAMINOPHEN 325 MG TABLET PO PRN (15:00)
[2022-10-25] MEDS ORDERED: MORPHINE 4 MG/ML SYR IV PRN (15:00)
[2022-10-25] MEDS ORDERED: ALBUTEROL 2.5 MG/3 ML NEB SOL NEB PRN (15:06)
[2022-10-25] MEDS ORDERED: ONDANSETRON 4 MG/2 ML VIAL IV PRN (15:06)
[2022-10-25] MEDS ORDERED: LORazepam 2 MG/ML VIAL IV PRN (15:10)
[2022-10-25] MEDS ORDERED: DOCUSATE NA/SENNA CONC 1 TAB PO PRN (15:10)
--- NOTE | 2022-10-25 15:13 | P.HP ---
Certification for Inpatient Patient admitted to: Inpatient With expected LOS: >2 Midnights Patient will require the following post-hospital care: None Practitioner: I am a practitioner with admitting privileges, knowledge of patient current condition, hospital course, and medical plan of care. Services: Services provided to patient in accordance with Admission requirements found in Title 42 Section 412.3 of the Code of Federal Regulations Patient History Date of Service: 10/25/22 Reason for admission: Intractible nausea\vomiting, abd pain History of Present Illness: Patient is a 37-year-old male with a past medical history significant for brain tumor, stage IV colorectal cancer with mets to the liver and lungs who presents with complaint of intractable nausea and vomiting onset yesterday. Patient alert and oriented x2. Patient is confused and unable to provide accurate history. Per mother's report patient has been having rectal and diffuse abdominal pain for the past 1 month. Patient rated pain as 8/10 in severity and described pain as aching in quality. Family reported that patient fell yesterday due to loss of balance and Suffered abrasion to bilateral knee\left great toe and avulsion to the right great toe. Family also reported that patient has been on chemotherapy every 2 weeks since patient was diagnosed with colorectal cancer last year. Last Chemotherapy was 3 weeks ago. Patient appears jaundiced and pale. Family reported that patient has been having associated signs and symptoms of poor appetite and Headache. Patient denies any other signs or symptoms. Symptoms are aggravated or relieved by nothing. Family decided to bring patient to the hospital due to worsening symptoms. Of note, while in the hospital patient vomited a large amount of blood with blood clots. Family reported that patient followed up with her oncologist last week and patient was noted with new symptoms of jaundice and worsening ascites. Allergies Sulfa (Sulfonamide Antibiotics) Allergy (Verified 01/04/22 08:03) Hives/Rash Home Medications: Acetaminophen [Acetaminophen Extra Strength] 1,000 mg PO Q6H 08/26/22 Pregabalin [Lyrica] 50 mg PO BID 08/26/22 Rivaroxaban [Xarelto*] 10 mg PO DAILY 08/26/22 Tramadol HCl [Ultram] 50 mg PO PRN 08/26/22 Opium/Belladonna Alkaloids [Belladonna-Opium 16.2-30 Supp] 1 each RC BID #60 supp.rect 08/27/22 Amox/Clavulanate [Augmentin 875-125 Tab] 875 mg PO BID #12 tab 08/28/22 Hydrocodone 5/APAP 325 [[place] 5/325*] 1 tab PO Q4H PRN #20 tab 08/28/22 Lidocaine Viscous 2% Soln [Xylocaine Viscous Oral 2%*] 15 ml PO Q6HP PRN #1 bottle 08/28/22 Opium/Belladonna Alkaloids [Belladonna-Opium 16.2-60 Supp] 1 each RC BID #30 supp.rect 08/28/22 - Past Medical/Surgical History Diabetic: No -: Colorectal cancer, stage 4, with metasteses to liver and lungs -: Craniotomy -: appendectomy -: tethered spinal cord release -: port a cath Psychosocial/ Personal History: Patient lives at home with his family. - Social History Smoking Status: Former smoker Alcohol use: No CD- Drugs: Yes Caffeine use: No Place of Residence: Home Review of Systems is unable to be obtained (Unable to assess. Patient confused and unable to provide accurate history) Physical Examination - Physical Exam General: Alert, Oriented x2, Mild distress, Confused HEENT: Atraumatic, PERRLA, Mucous membr. moist/pink, EOMI, Scleral icterus Neck: Supple, 2+ carotid pulse no bruit, No LAD, Without JVD or thyroid abnormality Respiratory: Clear to auscultation bilaterally, Diminished Cardiovascular: No edema, Regular rate/rhythm, Normal S1 S2 Capillary refill: <2 Seconds Gastrointestinal: Soft and benign, Distended, Ascites Musculoskeletal: No tenderness Integumentary: No rashes, Skin breakdown, Other (Wounds on Bilateral knee, left\right great toes) Neurological: Normal speech, Normal tone, Normal affect Lymphatics: No axilla or inguinal lymphadenopathy - Studies Laboratory Data (last 24 hrs) 10/25/22 13:12: PT 45.6 H, INR 4.15 H* 10/25/22 10:20: Sodium 134 L, Potassium 3.9, BUN 16, Creatinine 0.96, Glucose 102, Total Bilirubin 6.4 H*, AST 754 H*, ALT 97 H, Alkaline Phosphatase 1355 H, Lipase 16 L 10/25/22 10:20: WBC 29.90 H*, Hgb 15.2, Hct 47.3, Plt Count 287 Assessment and Plan - Plan --Severe sepsis with septic shock. Sepsis protocol implemented in the ER. Continue antibiotics and albumin infusion. Patient's family chose not to pursue aggressive treatment. Opted for hospice. Case management consulted for hospice set up. Continue comfort care measures. --Gastrointestinal bleeding. Patient vomited large amount of blood with blood clots after returning from CT scan. H&H stable at this time. Awaiting hospice set up. Continue supportive care. --Acute metabolic encephalopathy. Patient currently alert oriented x2. Patient is confused. CT head does not indicate any acute intracranial abnormality. Continue supportive care. --Stage IV colorectal cancer. With mets to the liver and lungs. Patient on chemotherapy O/P. Attending MD spoke with oncologist regarding family's decision to opt for hospice care. Continue comfort care measures. --Intractable nausea and vomiting. Antiemetics on board. Continue comfort measures. --Elevated D-dimer. Patient noted with hematemesis with blood clots. No aggressive treatment at this time. Awaiting hospice set up. Continue comfort care measures. --Acute pain. We will manage pain with current pain medication regimen. --Gastrointestinal bleeding. Likely secondary to varices. Continue Protonix drip and comfort measures. -- Elevated LFTs. Likely secondary to liver metastasis. Ascites noted on imaging. Patient noted to be jaundiced. Elevated bilirubin. Continue comfort care measures. -- DVT prophylaxis with SCDs. Discharge Plan: Other (Hospice) Plan to discharge in: Greater than 2 days - Advance Directives Does patient have a Living Will: No Does patient have a Durable POA for Healthcare: No - Code Status/Comfort Care Code Status Assessed: Yes Code Status: Do Not Attempt Resuscitat (Awaiting hopice setup) Comfort Measures: Palliative Care Physician Review: Patient Assessed, Agree with Above Assessment and Plan Critical Care: No
[2022-10-25] MEDS: PIPER TAZO 3.375 GM in NA CHLORIDE 0.9% 100 ML IV SCH (17:00)
[2022-10-25] MEDS ORDERED: D5NS KCL 20MEQ 20 MEQ/1,000 ML BAG IV SCH (18:36)
[2022-10-25 19:07] VITALS: O2SAT 95
[2022-10-25] MEDS ORDERED: PREGABALIN 50 MG CAP PO SCH (21:00)
[2022-10-25] MEDS ORDERED: HOME MED 1 EA UNK (Pregabalin [Lyrica] 25 MG Capsule) PO SCH (21:00)
[2022-10-25] MEDS: PANTOPRAZOLE INJ 80 MG in NA CHLORIDE 0.9% 250 ML IV SCH (22:51)
[2022-10-25] MEDS: ALBUMIN HUMAN 25% 200 ML IV SCH (22:57)
[2022-10-25] MEDS: HYDROMORPHONE HCL 2 MG/ML inj IV PRN (23:01)
[2022-10-26] MEDS: PIPER TAZO 3.375 GM in NA CHLORIDE 0.9% 100 ML IV SCH ×2 (01:08→08:46)
[2022-10-26] MEDS: ALBUMIN HUMAN 25% 200 ML IV SCH ×2 (03:00→11:00)
[2022-10-26] MEDS: HYDROMORPHONE HCL 2 MG/ML inj IV PRN ×2 (08:45→17:13)
[2022-10-26] MEDS: PANTOPRAZOLE INJ 80 MG in NA CHLORIDE 0.9% 250 ML IV SCH ×3 (10:00)
[2022-10-26] MEDS ORDERED: DIPHENHYDRAMINE 50 MG/ML VIAL IV PRN (15:12)
[2022-10-26 16:25] VITALS: BP 92/57; TEMP 98.3
--- NOTE | 2022-10-26 17:15 | EKG ---
Test Date: 2022-10-25 Test Time: 09:31:38 [employer] Visual Equipment Rental Clerk: IGGY MEASUREMENT RESULTS: Intervals: Rate: 144 FL: 120 QRSD: 64 QT: 348 QTc: 538 [place]a: P: 4 FL: 120 QRS: 41 T: 61 INTERPRETIVE STATEMENTS: Sinus tachycardia Possible Anterior infarct, age undetermined Abnormal ECG Compared to ECG 08/26/2022 12:52:52 Myocardial infarct finding now present Sinus rhythm no longer present Electronically Signed On 10-26-22 17:10:41 [employer] by Edvin Sutherland
--- NOTE | 2022-10-26 17:55 | P.DS ---
Admission Date: 10/25/22 Discharge Date: 10/26/22 Disposition: HOSPICE-MEDICAL FACILITY Reason for Admission: Intractible nausea\vomiting, abd pain Brief History of Present Illness: 37yo M, PMH: stage IV colorectal cancer with mets to liver and lungs, brain t umor. Presented to ED due to intractable nausea/vomiting with ~1-2 days duration. Worsening symptoms, and now associated with confusion. Abdominal pain over the last month with swelling. Fell day prior to admission. Undergoing chemotherapy every 2 weeks. Hospital Course: Problem List acute hepatic failure with metabolic acidosis conern for severe sepsis- without evidence of infection Stage IV colorectal cancer intractable nausea/vomiting upper GI bleed Patient found to be in liver failure secondary to worsening metastatic cancer. Labwork concerning for sepsis, however no obvious source of infection. Labwork can be seen in liver failure as well. Coagulopathy, hyperbilirubinemia, lactic acidosis. Due to the severity, sudden onset and progression - prognosis was reviewed with family. Patient became less responsive. It was decided to be most in line with what the patient would want and in his best interest to pursue inpatient hospice. Patient was made comfort measures on 10/26 and transitioned to inpatient hospice service on 10/26. Vital Signs/Physical Exam: Temp Pulse Resp BP Pulse Ox 98.3 F 136 H 14 92/57 L 96 10/26/22 16:00 10/26/22 16:00 10/26/22 16:00 10/26/22 16:00 10/26/22 16:00 General: Other (jaunice) HEENT: Scleral icterus Respiratory: Diminished, Other (nonlabored respirations) Cardiovascular: Other (tachycardia), Edema Gastrointestinal: Distended, Ascites Integumentary: No significant lesion, No erythema Neurological: Other (somnolent, moves extremities) Laboratory Data at Discharge: WBC Cancelled 10/26/22 05:00 Hgb Cancelled 10/26/22 05:00 Hct Cancelled 10/26/22 05:00 Plt Count Cancelled 10/26/22 05:00 PT Cancelled 10/26/22 Unknown INR Cancelled 10/26/22 Unknown Sodium Cancelled 10/26/22 05:00 Potassium Cancelled 10/26/22 05:00 BUN Cancelled 10/26/22 05:00 Creatinine Cancelled 10/26/22 05:00 Glucose Cancelled 10/26/22 05:00 Total Bilirubin 6.4 mg/dL (0.2-1.0) H* 10/25/22 10:20 AST 754 U/L (15-37) H* 10/25/22 10:20 ALT 97 U/L (16-61) H 10/25/22 10:20 Alkaline Phosphatase 1355 U/L (45-117) H 10/25/22 10:20 Lipase 16 U/L (73-393) L 10/25/22 10:20 Home Medications: Acetaminophen [Acetaminophen Extra Strength] 1,000 mg PO Q6H 08/26/22 Pregabalin [Lyrica] 50 mg PO BID 08/26/22 Rivaroxaban [Xarelto*] 10 mg PO DAILY 08/26/22 Tramadol HCl [Ultram] 50 mg PO PRN PRN 08/26/22 Opium/Belladonna Alkaloids [Belladonna-Opium 16.2-30 Supp] 1 each RC BID #60 supp.rect 08/27/22 Amox/Clavulanate [Augmentin 875-125 Tab] 875 mg PO BID #12 tab 08/28/22 Hydrocodone 5/APAP 325 [[place] 5/325*] 1 tab PO Q4H PRN #20 tab 08/28/22 Lidocaine Viscous 2% Soln [Xylocaine Viscous Oral 2%*] 15 ml PO Q6HP PRN #1 bottle 08/28/22 Opium/Belladonna Alkaloids [Belladonna-Opium 16.2-60 Supp] 1 each RC BID #30 supp.rect 08/28/22 Followup: Donte Summers MD [Primary Care Provider] - Time spent managing pt's care (in minutes): 45
== END 2022-10-26 17:51 | disposition hospice, inpatient (51) | DRG 871 ==
LOC: ER 09:03 → ERHOLD 15:03 → 2ND 18:13
PROVIDERS: ADMIT Internal Medicine; ATTEND Hospitalist
DX: A41.9 Sepsis, unspecified organism (principal); G93.41 Metabolic encephalopathy; R65.21 Severe sepsis with septic shock; K72.00 Acute and subacute hepatic failure without coma; C78.7 Secondary malignant neoplasm of liver and intrahepatic bile duct; C78.00 Secondary malignant neoplasm of unspecified lung; C19 Malignant neoplasm of rectosigmoid junction; R18.8 Other ascites; K92.2 Gastrointestinal hemorrhage, unspecified; E87.20 Acidosis, unspecified; S80.212A Abrasion, left knee, initial encounter; S80.211A Abrasion, right knee, initial encounter; S90.412A Abrasion, left great toe, initial encounter; S91.201A Unspecified open wound of right great toe with damage to nail, initial encounter; Z88.1 Allergy status to other antibiotic agents; Z79.01 Long term (current) use of anticoagulants; Z87.891 Personal history of nicotine dependence; Z90.49 Acquired absence of other specified parts of digestive tract; Z79.899 Other long term (current) drug therapy; Z20.822 Contact with and (suspected) exposure to COVID-19; W18.30XA Fall on same level, unspecified, initial encounter; Y92.9 Unspecified place or not applicable
CPT/HCPCS: 36415; 70450; 71045; 74177; 76705; 80053; 83605; 83690; 85025; 85379; 85384; 85610; 86850; 86900; 86901; 87040; 87811; 93005; 99285; C9113; J0692; J1170; J2405; J2543; J2550; J3370; J3480; J7030; J7050; P9047; Q9967

== ENCOUNTER 2022-10-26 18:21 | Inpatient (IN) | payer OTHER ==
--- OUTSIDE RECORDS SUMMARY | 2022-10-26 18:25 | XMS REPORT | Continuity of Care Document ---
:1985 Author Organization [facility] t Address 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 6 months chemo Allergies, Adverse Reactions, Alerts Allergy Allergy Status Severity Reaction(s) Onset Inactive Treating Comm ents Source Name Type Date Date Clinician Sulfa Allergy Active 2021-09 [place] [facility] sub[facility]anc 00:00: e 00 Social History Social Habit Start Date Stop Date Quantity Comments Source History of tobacco Passive smoker [place] [facility] use Exposure to 2022-06-12 2022-06-22 Not sure [facility] SARS-CoV-2 (event) 00:00:00 06:08:00 Alcohol intake 2022-06-22 2022-06-22 Lifetime [facility] 00:00:00 00:00:00 non-drinker (finding) Tobacco Comment 2022-06-22 2022-06-22 Smoking History [place] [facility] 00:00:00 00:00:00 Packs/day: 1 PPD. Recorded: 0 Sex Assigned At [birth year] [facility] 00:00:00 00:00:00 Smoking Status Start Date Stop Date Source Tobacco smoking consumption unknown [facility] Ex-smoker 2022-06-22 00:00:00 2022-06-22 00:00:00 [place] [facility] Medications Ordered Filled Start Stop Current Ordering Indication Dosage Frequency Signature Comments Components Source Medication Medication Date Date Medication? Clinician (SIG) Name Name No known 2021-09 No No known [place] medications medication He alth 16:17: s 06 Procedures Procedure Date / Time Performed Performing Clinician Sour e MRI BRAIN W WO CONTRAST 2021-07-15 15:24:25 Frank, Sigmund [place] [facility] BRAIN W WO CONTRAST 2021-07-15 15:24:25 Frank, Sigmund [place] [facility] Encounters Start End Encounter Admission Attending Care Care Encounter Source Date/Time Date/Time Type Type Clinicians Facility Department ID 2022-06-22 Outpatient [facility] [id number] [place] 14:54:25 [id number] [facility] 2022-06-21 Outpatient [facility] [id number] [place] 15:36:47 [id number] [facility] 2022-01-14 [id number] 10:00:[address] [place] [address] 2021-12-24 Outpatient SYSTEM, [facility] [id number] 11:45:50 PROVIDER Bashir moore 2022-06-22 2022-06-22 Telemedici Frank, UTP 6400 [id number] [place] 15:00:00 16:05:[address] [id number] Health [id number] 2021-07-15 2021-07-15 EXT [facility] OP Frank, EXT MSRDP [id number] [place] 00:00:00 00:00:00 Sigmund LOCATION [id number] H ealth [id number] 2021-07-15 2021-07-15 EXT [facility] OP Frank, EXT MSRDP [id number] [place] 00:00:00 00:00:00 Sigmund LOCATION [id number] H ealth [id number] Results This patient has no known results.
[2022-10-26] MEDS ORDERED: HYDROMORPHONE HCL 0.5 MG/0.5 ML INJ IV PRN (18:27)
[2022-10-26 18:29] VITALS: BMI 19.9
[2022-10-26] MEDS ORDERED: DIPHENHYDRAMINE 50 MG/ML VIAL IV PRN (18:32)
[2022-10-26] MEDS: MORPHINE 2 MG/ML SYR IV SCH (21:26)
[2022-10-27] MEDS: MORPHINE 2 MG/ML SYR IV SCH ×2 (00:39→05:09)
[2022-10-27] MEDS: LORazepam 2 MG/ML VIAL IV PRN ×2 (01:18→07:36)
[2022-10-27 04:15] VITALS: O2SAT 95
[2022-10-27] MEDS: HYDROMORPHONE HCL 2 MG/ML inj IV PRN ×4 (09:35→22:30)
--- NOTE | 2022-10-27 09:36 | P.HP ---
Certification for Inpatient Patient admitted to: Inpatient With expected LOS: >2 Midnights Patient will require the following post-hospital care: None Practitioner: I am a practitioner with admitting privileges, knowledge of patient current condition, hospital course, and medical plan of care. Services: Services provided to patient in accordance with Admission requirements found in Title 42 Section 412.3 of the Code of Federal Regulations Patient History Date of Service: 10/27/22 Reason for admission: Metastatic Colon Cancer Allergies Sulfa (Sulfonamide Antibiotics) Allergy (Verified 01/04/22 08:03) Hives/Rash Home Medications: Acetaminophen [Acetaminophen Extra Strength] 1,000 mg PO Q6H 08/26/22 Pregabalin [Lyrica] 50 mg PO BID 08/26/22 Rivaroxaban [Xarelto*] 10 mg PO DAILY 08/26/22 Tramadol HCl [Ultram] 50 mg PO PRN PRN 08/26/22 Opium/Belladonna Alkaloids [Belladonna-Opium 16.2-30 Supp] 1 each RC BID #60 cerv[place] pp.rect 08/27/22 Amox/Clavulanate [Augmentin 875-125 Tab] 875 mg PO BID #12 tab 08/28/22 Hydrocodone 5/APAP 325 [[place] 5/325*] 1 tab PO Q4H PRN #20 tab 08/28/22 Lidocaine Viscous 2% Soln [Xylocaine Viscous Oral 2%*] 15 ml PO Q6HP PRN #1 bottle 08/28/22 Opium/Belladonna Alkaloids [Belladonna-Opium 16.2-60 Supp] 1 each RC BID #30 supp.rect 08/28/22 - Past Medical/Surgical History Diabetic: No -: Colorectal cancer, stage 4, with metasteses to liver and lungs -: brain tumor -: Craniotomy -: appendectomy -: tethered spinal cord release -: port a cath Psychosocial/ Personal History: Patient lives at home with his family. - Social History Smoking Status: Never smoker Alcohol use: No CD- Drugs: No Caffeine use: No Place of Residence: Home Physical Examination - Vital Signs Temperature: 98.0 F Blood Pressure: 80/55 Pulse: 138 Respirations: 16 Pulse Ox (%): 91 Assessment & Plan - Advance Directives Does patient have a Living Will: No Does patient have a Durable POA for Healthcare: No
[2022-10-27] MEDS ORDERED: ONDANSETRON 4 MG/2 ML VIAL IV PRN (09:37)
[2022-10-27 21:41] VITALS: BP 93/52; TEMP 98.7
== END 2022-10-28 02:10 | disposition expired | DRG 951 ==
LOC: 2ND 18:21
PROVIDERS: ADMIT Hospitalist; ATTEND Hospitalist
DX: Z51.5 Encounter for palliative care (principal)
CPT/HCPCS: J1170; J1200; J2270